=== PATIENT | female | born 1960 | race Caucasian/White ===

== ENCOUNTER 2016-07-08 15:39 | Inpatient (IN) | payer OTHER, SELFPAY ==
[~2016-07-08] VITALS: Ht 160 cm; Wt 152.0 kg
[2016-07-08] MEDS ORDERED: ASPIRIN 81 MG TABLET CHEW ONE (16:29)
[2016-07-08] MEDS ORDERED: ONDANSETRON 2MG/ML, 2ML ONE (16:29)
[2016-07-08] MEDS ORDERED: MORPHINE SULFATE 4 MG/ML, 1ML ONE (16:29)
[2016-07-08] MEDS ORDERED: ALBUTEROL/IPRATROPIUM 2.5MG/0.5MG, 3 ML NPPB ONE (16:30)
[2016-07-08] MEDS ORDERED: NITROGLYCERIN SINGLE TAB 0.4 MG SL PRN (16:30)
[2016-07-08] MEDS ORDERED: SODIUM CHLORIDE FLUSH 10ML SYR IVF ONE (16:30)
[2016-07-08] MEDS ORDERED: MORPHINE SULFATE 4 MG/ML, 1ML IVPush PRN (16:30)
[2016-07-08] MEDS ORDERED: ONDANSETRON 2MG/ML, 2ML IVPush ONE (16:30)
[2016-07-08] MEDS ORDERED: ASPIRIN 81 MG TABLET CHEW PO ONE (16:30)
[2016-07-08] MEDS ORDERED: ALBUTEROL/IPRATROPIUM 2.5MG/0.5MG, 3 ML ONE (16:33)
[2016-07-08 16:42] LABS: BLOOD UREA NITROGEN 22 mg/dL (7-18)
[2016-07-08 16:48] LABS: IS PT STATUS REG ER OR PRE ER? YES
[2016-07-08] MEDS ORDERED: FUROSEMIDE 40 MG/4 ML ONE (17:52)
[2016-07-08] MEDS ORDERED: FUROSEMIDE 20 MG/2 ML ONE ×2 (17:55→18:19)
[2016-07-08] MEDS ORDERED: FUROSEMIDE 20 MG/2 ML IV ONE ×2 (18:00)
[2016-07-08] MEDS ORDERED: HEPARIN 5,000 UNITS/ML, 1ML ONE (18:19)
[2016-07-08] MEDS: HEPARIN 5,000 UNITS/ML, 1ML SQ SCH (18:24)
[2016-07-08] MEDS: AZITHROMYCIN 500 MG in SODIUM CHLORIDE 0.9% 250 ML IV SCH (18:25)
[2016-07-08] MEDS ORDERED: BISACODYL 10 MG SUPP PR PRN (18:30)
[2016-07-08 19:42] VITALS: BP 140/80
[2016-07-08] MEDS: metFORMIN 500 MG TABLET PO SCH (22:41)
[2016-07-08] MEDS: SODIUM CHLORIDE FLUSH 10ML SYR IVF SCH (22:41)
[2016-07-08] MEDS: ACETAMINOPHEN 325 MG TABLET PO PRN (22:44)
[2016-07-09 02:55] VITALS: BP 129/90
[2016-07-09] MEDS: HEPARIN 5,000 UNITS/ML, 1ML SQ SCH ×3 (03:41→18:27)
[2016-07-09 06:05] LABS: ASPARTATE AMINO TRANSFERASE 22 U/L (15-37); BLOOD UREA NITROGEN 21 mg/dL (7-18)
[2016-07-09 06:06] LABS: IS PT STATUS REG ER OR PRE ER? NO
[2016-07-09] MEDS: IBUPROFEN 200 MG TABLET PO PRN ×2 (06:35→21:06)
[2016-07-09 07:53] VITALS: BP 135/88
[2016-07-09] MEDS: FUROSEMIDE 40 MG/4 ML IV SCH ×2 (08:54→17:10)
[2016-07-09] MEDS: SENNA/DOCUSATE TABLET PO SCH (08:54)
[2016-07-09] MEDS: metFORMIN 500 MG TABLET PO SCH ×2 (08:54→17:10)
[2016-07-09] MEDS: SODIUM CHLORIDE FLUSH 10ML SYR IVF SCH ×2 (08:55→21:00)
[2016-07-09] MEDS ORDERED: PNEUMOCOCCAL 23 VACCINE IM-VACC ONE (09:00)
[2016-07-09 11:46] LABS: IS PT STATUS REG ER OR PRE ER? NO
[2016-07-09] MEDS: ACETAMINOPHEN 325 MG TABLET PO PRN (12:39)
[2016-07-09 14:09] VITALS: BP 127/80
[2016-07-09] MEDS: AZITHROMYCIN 500 MG in SODIUM CHLORIDE 0.9% 250 ML IV SCH (18:14)
[2016-07-09 19:03] VITALS: BP 135/79
[2016-07-09 21:18] VITALS: BP 131/75
[2016-07-09] MEDS: ONDANSETRON 2MG/ML, 2ML IVP PRN (22:17)
[2016-07-09] MEDS ORDERED: OXYcodone IR 5MG TABLET PO PRN (22:30)
[2016-07-10 03:19] VITALS: BP 151/80
[2016-07-10] MEDS: ONDANSETRON 2MG/ML, 2ML IVP PRN (03:58)
[2016-07-10] MEDS: HEPARIN 5,000 UNITS/ML, 1ML SQ SCH ×3 (04:00→18:52)
[2016-07-10] MEDS ORDERED: HALOPERIDOL 5 MG/ML IV ONE (04:30)
[2016-07-10 05:53] LABS: BLOOD UREA NITROGEN 19 mg/dL (7-18)
[2016-07-10 08:12] VITALS: BP 154/82
[2016-07-10] MEDS: metFORMIN 500 MG TABLET PO SCH ×2 (09:19→18:52)
[2016-07-10] MEDS: SODIUM CHLORIDE FLUSH 10ML SYR IVF SCH ×2 (09:19→19:43)
[2016-07-10] MEDS: SENNA/DOCUSATE TABLET PO SCH (09:19)
[2016-07-10] MEDS: FUROSEMIDE 40 MG/4 ML IV SCH ×2 (09:19→18:52)
[2016-07-10] MEDS: ACETAMINOPHEN 325 MG TABLET PO PRN ×2 (11:44→19:42)
[2016-07-10 13:58] VITALS: BP 132/60
[2016-07-10] MEDS: AZITHROMYCIN 500 MG in SODIUM CHLORIDE 0.9% 250 ML IV SCH (18:52)
[2016-07-10 19:09] VITALS: BP 137/80
[2016-07-11 01:52] VITALS: BP 144/91
[2016-07-11] MEDS: HEPARIN 5,000 UNITS/ML, 1ML SQ SCH ×3 (04:57→20:43)
[2016-07-11] MEDS: ONDANSETRON 2MG/ML, 2ML IVP PRN ×2 (05:04→10:23)
[2016-07-11 05:37] LABS: BLOOD UREA NITROGEN 20 mg/dL (7-18)
[2016-07-11 07:35] VITALS: BP 134/81
[2016-07-11] MEDS: FUROSEMIDE 40 MG/4 ML IV SCH ×2 (09:53→17:20)
[2016-07-11] MEDS: metFORMIN 500 MG TABLET PO SCH (09:53)
[2016-07-11] MEDS: SENNA/DOCUSATE TABLET PO SCH (09:54)
[2016-07-11] MEDS: SODIUM CHLORIDE FLUSH 10ML SYR IVF SCH ×2 (09:54→20:42)
[2016-07-11] MEDS ORDERED: GABA300C10 PO (10:04)
[2016-07-11] MEDS: POLYETHYLENE GLYCOL 17 GM PACKET PO PRN (10:23)
[2016-07-11 13:00] VITALS: BP 164/93
[2016-07-11] MEDS ORDERED: MAGNESIUM SULFATE PMX 2GM/50ML 50 ML IV ONE (14:00)
[2016-07-11 14:14] LABS: ABG COLLECTION SITE LEFT RADIAL; COLLATERAL CIRCULATION TESTING NORMAL
[2016-07-11 15:28] LABS: PATH.CAST-FLAG NOT PRESENT; SPERM-FLAG NOT PRESENT; SRC-FLAG NOT PRESENT; XTAL-FLAG NOT PRESENT; YLC-FLAG NOT PRESENT
[2016-07-11] MEDS: INSULIN REGULAR 100 UNITS/ML, 3ML VIAL SQ-INSULIN SCH ×2 (16:00→20:50)
[2016-07-11] MEDS: methylPREDNISolone SOD SUCC 125 MG/2 ML IVPush SCH ×2 (16:00→20:23)
[2016-07-11 17:33] LABS: ABG COLLECTION SITE LEFT RADIAL; COLLATERAL CIRCULATION TESTING NORMAL
[2016-07-11] MEDS ORDERED: AcetaZOLAMIDE INJ 500 MG IVPush ONE (17:47)
[2016-07-11] MEDS: AZITHROMYCIN 500 MG in SODIUM CHLORIDE 0.9% 250 ML IV SCH (18:21)
[2016-07-11 20:35] LABS: ABG COLLECTION SITE LEFT RADIAL; COLLATERAL CIRCULATION TESTING NORMAL
[2016-07-11] MEDS: ALBUTEROL SULFATE 2.5 MG/3 ML NPPB SCH (22:27)
[2016-07-12] MEDS: methylPREDNISolone SOD SUCC 125 MG/2 ML IVPush SCH ×4 (02:04→20:29)
[2016-07-12] MEDS: ALBUTEROL SULFATE 2.5 MG/3 ML NPPB SCH ×6 (03:00→23:00)
[2016-07-12 04:00] VITALS: BP 130/66
[2016-07-12 05:27] LABS: ABG COLLECTION SITE RIGHT RADIAL; COLLATERAL CIRCULATION TESTING NORMAL
[2016-07-12 05:44] LABS: BLOOD UREA NITROGEN 18 mg/dL (7-18)
[2016-07-12 05:47] LABS: ASPARTATE AMINO TRANSFERASE 16 U/L (15-37)
[2016-07-12] MEDS: HEPARIN 5,000 UNITS/ML, 1ML SQ SCH ×3 (06:05→20:32)
[2016-07-12] MEDS: INSULIN REGULAR 100 UNITS/ML, 3ML VIAL SQ-INSULIN SCH ×4 (06:14→20:42)
[2016-07-12] MEDS: SODIUM CHLORIDE FLUSH 10ML SYR IVF SCH ×2 (07:56→20:33)
[2016-07-12] MEDS: FUROSEMIDE 40 MG/4 ML IV SCH ×2 (07:56→17:18)
[2016-07-12] MEDS: SENNA/DOCUSATE TABLET PO SCH (07:56)
[2016-07-12] MEDS: ACETAMINOPHEN 325 MG TABLET PO PRN (09:19)
[2016-07-12 13:41] LABS: ABG COLLECTION SITE RIGHT BRACHIAL; COLLATERAL CIRCULATION TESTING NORMAL
[2016-07-12] MEDS: AZITHROMYCIN 500 MG in SODIUM CHLORIDE 0.9% 250 ML IV SCH (20:25)
[2016-07-12 21:11] VITALS: BP 147/85
[2016-07-13] VITALS (7 sets, daily range): BP systolic 126–192; BP diastolic 62–110
[2016-07-13] MEDS: LABETALOL 5MG/ML, 20ML IVPush PRN ×2 (01:57→19:54)
[2016-07-13] MEDS: ALBUTEROL SULFATE 2.5 MG/3 ML NPPB SCH ×3 (03:00→11:00)
[2016-07-13] MEDS: methylPREDNISolone SOD SUCC 125 MG/2 ML IVPush SCH ×4 (03:06→19:54)
[2016-07-13 05:20] LABS: BLOOD UREA NITROGEN 24 mg/dL (7-18)
[2016-07-13] MEDS: HEPARIN 5,000 UNITS/ML, 1ML SQ SCH ×3 (06:19→21:46)
[2016-07-13] MEDS: POLYETHYLENE GLYCOL 17 GM PACKET PO PRN (08:33)
[2016-07-13] MEDS: SENNA/DOCUSATE TABLET PO SCH (08:34)
[2016-07-13] MEDS: FUROSEMIDE 40 MG/4 ML IV SCH ×2 (08:34→16:26)
[2016-07-13] MEDS: INSULIN REGULAR 100 UNITS/ML, 3ML VIAL SQ-INSULIN SCH ×4 (08:35→21:46)
[2016-07-13] MEDS: SODIUM CHLORIDE FLUSH 10ML SYR IVF SCH ×2 (08:35→21:00)
[2016-07-13] MEDS ORDERED: hydrALAzine 20 MG/ML, 1ML IV PRN (09:30)
[2016-07-13] MEDS ORDERED: NS + 20MEQ KCL 1,000 ML IV SCH (09:30)
[2016-07-13] MEDS ORDERED: ENALAPRILAT 1.25 MG/ML, 2ML IV PRN (09:30)
[2016-07-13] MEDS: AZITHROMYCIN 500 MG in SODIUM CHLORIDE 0.9% 250 ML IV SCH (16:26)
[2016-07-13] MEDS: INSULIN DETEMIR 100 UNITS/ML, PEN SQ-INSULIN SCH (16:26)
[2016-07-14 00:45] VITALS: BP 173/85
[2016-07-14] MEDS: methylPREDNISolone SOD SUCC 125 MG/2 ML IVPush SCH ×4 (01:43→22:06)
[2016-07-14] MEDS: LABETALOL 5MG/ML, 20ML IVPush PRN (01:43)
[2016-07-14 06:05] LABS: BLOOD UREA NITROGEN 31 mg/dL (7-18)
[2016-07-14] MEDS: HEPARIN 5,000 UNITS/ML, 1ML SQ SCH ×3 (06:24→22:05)
[2016-07-14] MEDS: INSULIN REGULAR 100 UNITS/ML, 3ML VIAL SQ-INSULIN SCH ×4 (06:25→21:00)
[2016-07-14] MEDS: INSULIN DETEMIR 100 UNITS/ML, PEN SQ-INSULIN SCH ×2 (06:25→22:05)
[2016-07-14 07:46] VITALS: BP 167/105
[2016-07-14] MEDS: FUROSEMIDE 40 MG/4 ML IV SCH ×2 (07:51→17:02)
[2016-07-14] MEDS: SENNA/DOCUSATE TABLET PO SCH (07:52)
[2016-07-14] MEDS: SODIUM CHLORIDE FLUSH 10ML SYR IVF SCH ×2 (07:52→21:43)
[2016-07-14] MEDS: ACETAMINOPHEN 325 MG TABLET PO PRN ×2 (12:40→22:06)
[2016-07-14 15:14] VITALS: BP 165/87
[2016-07-14] MEDS: GABAPENTIN 100 MG CAPSULE PO SCH ×2 (17:03→22:06)
[2016-07-14 20:07] VITALS: BP 157/84
[2016-07-14] MEDS: DOXYCYCLINE 100 MG in DEXTROSE 5% 250 ML IV SCH (21:43)
[2016-07-15] MEDS: methylPREDNISolone SOD SUCC 125 MG/2 ML IVPush SCH ×2 (02:12→08:06)
[2016-07-15 02:17] VITALS: BP 182/113
[2016-07-15] MEDS: LABETALOL 5MG/ML, 20ML IVPush PRN (02:25)
[2016-07-15] MEDS: HEPARIN 5,000 UNITS/ML, 1ML SQ SCH ×3 (06:00→20:24)
[2016-07-15] MEDS: INSULIN REGULAR 100 UNITS/ML, 3ML VIAL SQ-INSULIN SCH ×4 (08:05→20:06)
[2016-07-15] MEDS: FUROSEMIDE 40 MG/4 ML IV SCH ×2 (08:06→16:33)
[2016-07-15] MEDS: INSULIN DETEMIR 100 UNITS/ML, PEN SQ-INSULIN SCH ×2 (08:06→20:23)
[2016-07-15] MEDS: GABAPENTIN 100 MG CAPSULE PO SCH ×3 (08:06→20:24)
[2016-07-15] MEDS: SODIUM CHLORIDE FLUSH 10ML SYR IVF SCH ×2 (08:07→20:23)
[2016-07-15] MEDS: SENNA/DOCUSATE TABLET PO SCH (08:07)
[2016-07-15 08:12] VITALS: BP 159/81
[2016-07-15 08:51] VITALS: BP 153/78
[2016-07-15] MEDS: DOXYCYCLINE 100 MG in DEXTROSE 5% 250 ML IV SCH (10:16)
[2016-07-15 15:56] VITALS: BP 152/82
[2016-07-15 18:43] VITALS: BP 143/76
[2016-07-15] MEDS: DOXYCYCLINE 100MG TABLET PO SCH (20:24)
[2016-07-15] MEDS: ACETAMINOPHEN 325 MG TABLET PO PRN (20:24)
[2016-07-16 01:24] VITALS: BP_SYST 155; BP_SYST 173; BP_DIAS 53; BP_DIAS 93
[2016-07-16] MEDS: HEPARIN 5,000 UNITS/ML, 1ML SQ SCH (05:22)
[2016-07-16 07:13] VITALS: BP 154/81
[2016-07-16] MEDS: INSULIN REGULAR 100 UNITS/ML, 3ML VIAL SQ-INSULIN SCH (09:17)
[2016-07-16] MEDS: DOXYCYCLINE 100MG TABLET PO SCH (09:41)
[2016-07-16] MEDS: GABAPENTIN 100 MG CAPSULE PO SCH (09:41)
[2016-07-16] MEDS: SENNA/DOCUSATE TABLET PO SCH (09:41)
[2016-07-16] MEDS: INSULIN DETEMIR 100 UNITS/ML, PEN SQ-INSULIN SCH ×2 (09:43→10:16)
[2016-07-16] MEDS: ACETAMINOPHEN 325 MG TABLET PO PRN (09:55)
[2016-07-16] MEDS: SODIUM CHLORIDE FLUSH 10ML SYR IVF SCH (09:56)
[2016-07-16] MEDS: FUROSEMIDE 40 MG/4 ML IV SCH (09:56)
[2016-07-16] MEDS ORDERED: POTA20TA89 PO (10:09)
[2016-07-16] MEDS ORDERED: INSU100I28 SQ-INSULIN (10:09)
[2016-07-16] MEDS ORDERED: DOXY100T PO (10:09)
[2016-07-16] MEDS ORDERED: GLIP5TAB10 PO (10:09)
[2016-07-16] MEDS ORDERED: FLUT1AER INH (10:09)
[2016-07-16] MEDS ORDERED: TRAM50TA2 PO (10:09)
[2016-07-16] MEDS ORDERED: HYDR-3341 PO (10:09)
[2016-07-16] MEDS ORDERED: FURO40TA6 PO (10:09)
[2016-07-16] MEDS ORDERED: PRED5TAB PO (10:09)
[2016-07-16] MEDS ORDERED: GABA100C8 PO (10:09)
[2016-07-16 11:10] LABS: IS PT STATUS REG ER OR PRE ER? NO
== END 2016-07-16 15:06 | disposition home or self-care (01) | DRG 291 ==
LOC: ED 17:42 → EDIP 18:03 → 5SO 18:51 → CCU 07-11 14:54 → 5SO 07-12 17:46
PROVIDERS: ADMIT Internal Medicine; ATTEND Family Medicine
PROC: 5A09457 Assistance with Respiratory Ventilation, 24-96 Consecutive Hours, Continuous Positive Airway Pressure (ICD-10-PCS; 2016-07-10)
PROC: 0T9B70Z Drainage of Bladder with Drainage Device, Via Natural or Artificial Opening (ICD-10-PCS; principal; 2016-07-11)
DX: I11.0 Hypertensive heart disease with heart failure (principal); J96.01 Acute respiratory failure with hypoxia; N17.0 Acute kidney failure with tubular necrosis; G93.41 Metabolic encephalopathy; J96.02 Acute respiratory failure with hypercapnia; J44.1 Chronic obstructive pulmonary disease with (acute) exacerbation; Z68.44 Body mass index [BMI] 60.0-69.9, adult; E87.2 Acidosis; E87.1 Hypo-osmolality and hyponatremia; I50.33 Acute on chronic diastolic (congestive) heart failure; E66.01 Morbid (severe) obesity due to excess calories; E11.65 Type 2 diabetes mellitus with hyperglycemia; D75.1 Secondary polycythemia; E03.9 Hypothyroidism, unspecified; Z87.891 Personal history of nicotine dependence; Z82.49 Family history of ischemic heart disease and other diseases of the circulatory system; Z91.19 Patient's noncompliance with other medical treatment and regimen; Z82.3 Family history of stroke; Z80.3 Family history of malignant neoplasm of breast; Z79.4 Long term (current) use of insulin; Z79.84 Long term (current) use of oral hypoglycemic drugs
CPT/HCPCS: 36415; 36600; 71010; 80048; 80053; 80061; 80076; 81001; 82040; 82803; 82962; 83036; 83735; 83880; 84439; 84443; 84484; 85025; 87081; 90732; 93005; 94640; 94660; 96374; 96375; C8929; J0456; J1644; J1815; J1940; J2405; J3480; J7060; J7613; J7620; J1120; J1630; J2930; J3475; J7050; J7512

== ENCOUNTER 2017-02-26 20:12 | Inpatient (IN) | payer MEDICAID, OTHER ==
[~2017-02-26] VITALS: Ht 162.6 cm; Wt 145.0 kg
[~2017-02-26 20:12] MED LIST: DOXY100T PO; FLUT1AER INH; FURO40TA6 PO; GABA-826 PO; GABA300C10 PO; GLIP5TAB10 PO; HYDR-3341 PO; INSU100I28 SQ-INSULIN; POTA20TA89 PO; PRED5TAB PO; TRAM50TA2 PO
[2017-02-26] MEDS ORDERED: SODIUM CHLORIDE 0.9% 1,000 ML IV ONE (20:40)
[2017-02-26] MEDS ORDERED: ALBUTEROL/IPRATROPIUM 2.5MG/0.5MG, 3 ML ONE (20:46)
[2017-02-26] MEDS ORDERED: NITROGLYCERIN OINT 2%, 1GM TP ONE ×2 (21:00→21:12)
[2017-02-26] MEDS ORDERED: ALBUTEROL/IPRATROPIUM 2.5MG/0.5MG, 3 ML NPPB ONE (21:00)
[2017-02-26] MEDS ORDERED: SODIUM CHLORIDE FLUSH 10ML SYR IVF ONE (21:00)
[2017-02-26] MEDS ORDERED: methylPREDNISolone SOD SUCC 125 MG/2 ML IVP ONE (21:00)
[2017-02-26] MEDS ORDERED: methylPREDNISolone SOD SUCC 125 MG/2 ML ONE (21:12)
[2017-02-26 21:48] LABS: ASPARTATE AMINO TRANSFERASE 30 U/L (15-37); BLOOD UREA NITROGEN 13 mg/dL (7-18)
[2017-02-26 21:54] LABS: IS PT STATUS REG ER OR PRE ER? YES
[2017-02-26 21:58] LABS: HEMATOCRIT 42.6 % (34.6-47.8); WHITE BLOOD COUNT 7.8 x10^3/uL (3.4-10)
[2017-02-26 21:59] LABS: DIFF TOTAL CELLS COUNTED 100 CELL DIFF; VERIFY COUNTS? YES
[2017-02-26] MEDS ORDERED: SODIUM CHLORIDE 0.9% 1,000 ML IV SCH (22:26)
[2017-02-26] MEDS ORDERED: ALBUTEROL/IPRATROPIUM 2.5MG/0.5MG, 3 ML NPPB PRN (22:30)
[2017-02-26] MEDS ORDERED: ONDANSETRON ODT 4 MG PO PRN (22:30)
[2017-02-26] MEDS ORDERED: FUROSEMIDE 40 MG/4 ML IV ONE (22:30)
[2017-02-26] MEDS ORDERED: AZITHROMYCIN 500 MG TABLET PO ONE (22:30)
[2017-02-26] MEDS ORDERED: ENALAPRILAT 1.25 MG/ML, 2ML IVPush PRN (22:30)
[2017-02-26] MEDS ORDERED: INSULIN DETEMIR 100 UNITS/ML, PEN SQ-INSULIN SCH (22:30)
[2017-02-26] MEDS ORDERED: LISINOPRIL 10 MG TABLET PO ONE (22:30)
[2017-02-26] MEDS: methylPREDNISolone SOD SUCC 125 MG/2 ML IVPush SCH (22:33)
[2017-02-26] MEDS: ALBUTEROL/IPRATROPIUM 2.5MG/0.5MG, 3 ML NPPB SCH (23:00)
[2017-02-26 23:20] VITALS: BP 127/85
[2017-02-26] MEDS ORDERED: ACETAMINOPHEN 325 MG TABLET PO PRN (23:30)
[2017-02-27] MEDS ORDERED: DEXTROSE 50%, 50ML SYRINGE IVPush PRN
[2017-02-27] MEDS ORDERED: DEXTROSE 4 GM TAB.CHEW PO PRN
[2017-02-27] MEDS ORDERED: GLUCAGON 1 MG IM PRN
[2017-02-27] MEDS: IBUPROFEN 200 MG TABLET PO PRN ×2 (00:01→13:18)
[2017-02-27 00:19] VITALS: BP 127/85
[2017-02-27] MEDS ORDERED: FUROSEMIDE 20 MG/2 ML ONE (00:58)
[2017-02-27] MEDS ORDERED: FLU VACC QS2017-18 (36MOS+) UP/PF 0.5 ML IM-VACC ONE (01:00)
[2017-02-27 01:13] LABS: RAPID INFLUENZA A POSITIVE (Negative); RAPID INFLUENZA B Negative (Negative)
[2017-02-27] MEDS: ENOXAPARIN 40 MG/0.4 ML SQ SCH ×2 (01:16→22:34)
[2017-02-27] MEDS ORDERED: ALBUTEROL/IPRATROPIUM 2.5MG/0.5MG, 3 ML NPPB PRN (01:30)
[2017-02-27] MEDS ORDERED: ALBUTEROL/IPRATROPIUM 2.5MG/0.5MG, 3 ML NPPB SCH (01:30)
[2017-02-27] MEDS: OSELTAMIVIR 75 MG CAPSULE PO SCH ×3 (02:23→20:50)
[2017-02-27 02:32] VITALS: BP 150/75
[2017-02-27] MEDS: ALBUTEROL/IPRATROPIUM 2.5MG/0.5MG, 3 ML NPPB SCH ×6 (02:47→22:40)
[2017-02-27 05:55] LABS: HEMATOCRIT 39.4 % (34.6-47.8); HEMOGLOBIN 12.9 g/dL (11.7-16.4); WHITE BLOOD COUNT 7.6 x10^3/uL (3.4-10)
[2017-02-27] MEDS: ASPIRIN 81 MG TABLET EC PO SCH (06:18)
[2017-02-27] MEDS ORDERED: GUAIFENESIN ER 600 MG TABLET PO STA (06:19)
[2017-02-27 06:25] LABS: ABG COLLECTION SITE LEFT RADIAL; COLLATERAL CIRCULATION TESTING NORMAL
[2017-02-27] MEDS ORDERED: FUROSEMIDE 40 MG/4 ML IV STA (06:34)
[2017-02-27 06:42] LABS: IS PT STATUS REG ER OR PRE ER? NO
[2017-02-27 07:10] VITALS: BP 139/66
[2017-02-27] MEDS ORDERED: FUROSEMIDE 40 MG TABLET PO SCH (09:00)
[2017-02-27] MEDS ORDERED: POTASSIUM CHLORIDE 20 MEQ TAB.ER.PRT PO SCH (09:00)
[2017-02-27] MEDS: FLUTICASONE/VILANTEROL 100-25MCG/INH INH SCH ×2 (09:06→20:50)
[2017-02-27] MEDS: INSULIN REGULAR 100 UNITS/ML, 3ML VIAL SQ-INSULIN SCH ×4 (09:06→21:06)
[2017-02-27] MEDS: SODIUM CHLORIDE FLUSH 10ML SYR IVF SCH ×2 (09:08→20:51)
[2017-02-27] MEDS: GABAPENTIN 100 MG CAPSULE PO SCH ×3 (09:09→20:50)
[2017-02-27] MEDS: POTASSIUM CHLORIDE 20 MEQ TAB.ER.PRT PO SCH ×2 (09:09→20:50)
[2017-02-27] MEDS: LISINOPRIL 20 MG TABLET PO SCH (09:10)
[2017-02-27] MEDS: AZITHROMYCIN 250 MG TABLET PO SCH (09:11)
[2017-02-27] MEDS: CEFTRIAXONE PMX 2GM/50ML 50 ML IV SCH (09:12)
[2017-02-27] MEDS: FUROSEMIDE 40 MG/4 ML IV SCH (09:12)
[2017-02-27 10:19] LABS: IS PT STATUS REG ER OR PRE ER? NO
[2017-02-27] MEDS: methylPREDNISolone SOD SUCC 125 MG/2 ML IVPush SCH ×2 (11:00→22:34)
[2017-02-27 13:13] VITALS: BP 113/52
[2017-02-27 15:19] LABS: BLOOD UREA NITROGEN 18 mg/dL (7-18)
[2017-02-27 16:44] VITALS: BP 128/63
[2017-02-27 20:43] VITALS: BP 109/76
[2017-02-27] MEDS: SIMVASTATIN 20 MG TABLET PO SCH (20:50)
[2017-02-27] MEDS ORDERED: SODIUM CHLORIDE 0.9% 1,000 ML IV SCH (22:26)
[2017-02-28] MEDS: ALBUTEROL/IPRATROPIUM 2.5MG/0.5MG, 3 ML NPPB SCH ×6 (02:45→22:43)
[2017-02-28] MEDS: ASPIRIN 81 MG TABLET EC PO SCH (03:05)
[2017-02-28] MEDS: IBUPROFEN 200 MG TABLET PO PRN ×2 (03:05→20:16)
[2017-02-28 03:09] VITALS: BP 126/60
[2017-02-28 07:36] VITALS: BP 144/68
[2017-02-28] MEDS: FLUTICASONE/VILANTEROL 100-25MCG/INH INH SCH ×2 (07:45→20:16)
[2017-02-28] MEDS: INSULIN REGULAR 100 UNITS/ML, 3ML VIAL SQ-INSULIN SCH ×4 (07:45→22:37)
[2017-02-28] MEDS: FUROSEMIDE 40 MG/4 ML IV SCH ×2 (07:46→08:57)
[2017-02-28] MEDS: GABAPENTIN 100 MG CAPSULE PO SCH ×3 (07:47→20:16)
[2017-02-28] MEDS: POTASSIUM CHLORIDE 20 MEQ TAB.ER.PRT PO SCH ×3 (07:47→20:17)
[2017-02-28] MEDS: LISINOPRIL 20 MG TABLET PO SCH (07:48)
[2017-02-28] MEDS: OSELTAMIVIR 75 MG CAPSULE PO SCH ×2 (08:56→20:16)
[2017-02-28] MEDS: CEFTRIAXONE PMX 2GM/50ML 50 ML IV SCH (08:56)
[2017-02-28] MEDS: AZITHROMYCIN 250 MG TABLET PO SCH (08:56)
[2017-02-28] MEDS: SODIUM CHLORIDE FLUSH 10ML SYR IVF SCH ×2 (09:11→20:16)
[2017-02-28] MEDS: methylPREDNISolone SOD SUCC 125 MG/2 ML IVPush SCH (11:32)
[2017-02-28 14:43] VITALS: BP 141/68
[2017-02-28 19:49] VITALS: BP 123/69
[2017-02-28] MEDS: SIMVASTATIN 20 MG TABLET PO SCH (20:16)
[2017-02-28] MEDS: ENOXAPARIN 40 MG/0.4 ML SQ SCH (22:33)
[2017-03-01 02:53] VITALS: BP 124/62
[2017-03-01] MEDS: ALBUTEROL/IPRATROPIUM 2.5MG/0.5MG, 3 ML NPPB SCH ×6 (03:00→22:20)
[2017-03-01] MEDS: ASPIRIN 81 MG TABLET EC PO SCH (04:55)
[2017-03-01 05:49] LABS: BLOOD UREA NITROGEN 25 mg/dL (7-18)
[2017-03-01] MEDS: INSULIN REGULAR 100 UNITS/ML, 3ML VIAL SQ-INSULIN SCH ×4 (06:00→20:35)
[2017-03-01 07:38] VITALS: BP 135/75
[2017-03-01] MEDS: predniSONE 50MG TABLET PO SCH (08:42)
[2017-03-01] MEDS: FUROSEMIDE 40 MG/4 ML IV SCH (08:42)
[2017-03-01] MEDS: AZITHROMYCIN 250 MG TABLET PO SCH (08:42)
[2017-03-01] MEDS: LISINOPRIL 20 MG TABLET PO SCH (08:43)
[2017-03-01] MEDS: CEFTRIAXONE PMX 2GM/50ML 50 ML IV SCH (08:43)
[2017-03-01] MEDS: OSELTAMIVIR 75 MG CAPSULE PO SCH ×2 (08:43→20:15)
[2017-03-01] MEDS: GABAPENTIN 100 MG CAPSULE PO SCH ×3 (08:43→20:15)
[2017-03-01] MEDS: POTASSIUM CHLORIDE 20 MEQ TAB.ER.PRT PO SCH ×2 (08:43→20:15)
[2017-03-01] MEDS: SODIUM CHLORIDE FLUSH 10ML SYR IVF SCH ×2 (08:44→20:18)
[2017-03-01] MEDS: FLUTICASONE/VILANTEROL 100-25MCG/INH INH SCH ×2 (08:44→20:18)
[2017-03-01 13:00] VITALS: BP 97/48
[2017-03-01 19:16] VITALS: BP 135/71
[2017-03-01] MEDS: ENOXAPARIN 40 MG/0.4 ML SQ SCH (20:14)
[2017-03-01] MEDS: SIMVASTATIN 20 MG TABLET PO SCH (20:15)
[2017-03-01] MEDS: BENZONATATE 100 MG CAPSULE PO PRN (20:15)
[2017-03-02 02:01] VITALS: BP 132/67
[2017-03-02] MEDS: ASPIRIN 81 MG TABLET EC PO SCH (03:46)
[2017-03-02] MEDS: IBUPROFEN 200 MG TABLET PO PRN ×2 (03:57→21:09)
[2017-03-02] MEDS: BENZONATATE 100 MG CAPSULE PO PRN ×2 (03:57→21:25)
[2017-03-02] MEDS ORDERED: ALBUTEROL/IPRATROPIUM 2.5MG/0.5MG, 3 ML NPPB PRN (06:00)
[2017-03-02] MEDS ORDERED: ALBUTEROL/IPRATROPIUM 2.5MG/0.5MG, 3 ML NPPB SCH (06:00)
[2017-03-02] MEDS: INSULIN REGULAR 100 UNITS/ML, 3ML VIAL SQ-INSULIN SCH ×4 (06:28→21:26)
[2017-03-02] MEDS: FLUTICASONE/VILANTEROL 100-25MCG/INH INH SCH ×2 (07:49→21:00)
[2017-03-02] MEDS: predniSONE 50MG TABLET PO SCH (07:49)
[2017-03-02] MEDS: GABAPENTIN 100 MG CAPSULE PO SCH ×3 (07:49→20:58)
[2017-03-02] MEDS: OSELTAMIVIR 75 MG CAPSULE PO SCH ×2 (07:49→20:59)
[2017-03-02] MEDS: FUROSEMIDE 40 MG/4 ML IV SCH (07:49)
[2017-03-02] MEDS: AZITHROMYCIN 250 MG TABLET PO SCH (07:50)
[2017-03-02] MEDS: LISINOPRIL 20 MG TABLET PO SCH (07:55)
[2017-03-02] MEDS: POTASSIUM CHLORIDE 20 MEQ TAB.ER.PRT PO SCH ×2 (07:55→20:58)
[2017-03-02] MEDS: SODIUM CHLORIDE FLUSH 10ML SYR IVF SCH ×2 (07:56→21:00)
[2017-03-02 08:10] VITALS: BP 118/53
[2017-03-02] MEDS: ALBUTEROL/IPRATROPIUM 2.5MG/0.5MG, 3 ML NPPB SCH ×5 (08:30→22:15)
[2017-03-02] MEDS: CEFTRIAXONE PMX 2GM/50ML 50 ML IV SCH (09:01)
[2017-03-02 13:43] VITALS: BP 125/65
[2017-03-02] MEDS: INSULIN DETEMIR 100 UNITS/ML, PEN SQ-INSULIN SCH (17:30)
[2017-03-02 19:43] VITALS: BP 123/81
[2017-03-02] MEDS: SIMVASTATIN 20 MG TABLET PO SCH (20:58)
[2017-03-02] MEDS: ENOXAPARIN 40 MG/0.4 ML SQ SCH (20:59)
[2017-03-03 02:24] VITALS: BP 136/71
[2017-03-03] MEDS: ASPIRIN 81 MG TABLET EC PO SCH (05:55)
[2017-03-03] MEDS: ALBUTEROL/IPRATROPIUM 2.5MG/0.5MG, 3 ML NPPB SCH ×5 (07:28→22:50)
[2017-03-03 08:00] VITALS: BP 121/71
[2017-03-03] MEDS: AZITHROMYCIN 250 MG TABLET PO SCH (08:45)
[2017-03-03] MEDS: LISINOPRIL 20 MG TABLET PO SCH (08:45)
[2017-03-03] MEDS: GABAPENTIN 100 MG CAPSULE PO SCH ×3 (08:45→22:33)
[2017-03-03] MEDS: POTASSIUM CHLORIDE 20 MEQ TAB.ER.PRT PO SCH ×2 (08:45→22:32)
[2017-03-03] MEDS: OSELTAMIVIR 75 MG CAPSULE PO SCH ×2 (08:45→22:32)
[2017-03-03] MEDS: SODIUM CHLORIDE FLUSH 10ML SYR IVF SCH ×2 (08:46→21:00)
[2017-03-03] MEDS: predniSONE 50MG TABLET PO SCH (08:46)
[2017-03-03] MEDS: INSULIN REGULAR 100 UNITS/ML, 3ML VIAL SQ-INSULIN SCH ×4 (08:50→21:00)
[2017-03-03] MEDS: FLUTICASONE/VILANTEROL 100-25MCG/INH INH SCH ×2 (08:51→22:31)
[2017-03-03] MEDS: FUROSEMIDE 40 MG/4 ML IV SCH (09:00)
[2017-03-03] MEDS: CEFTRIAXONE PMX 2GM/50ML 50 ML IV SCH (09:00)
[2017-03-03] MEDS ORDERED: CEFTRIAXONE 1,000 MG IM ONE (11:00)
[2017-03-03 13:31] VITALS: BP 125/79
[2017-03-03] MEDS ORDERED: LIDOCAINE 1%, 10ML ONE (15:22)
[2017-03-03] MEDS: INSULIN DETEMIR 100 UNITS/ML, PEN SQ-INSULIN SCH (18:48)
[2017-03-03 19:16] VITALS: BP 144/75
[2017-03-03] MEDS: SIMVASTATIN 20 MG TABLET PO SCH (22:32)
[2017-03-03] MEDS: ENOXAPARIN 40 MG/0.4 ML SQ SCH (22:34)
[2017-03-03] MEDS: BENZONATATE 100 MG CAPSULE PO PRN (22:34)
[2017-03-04 03:42] VITALS: BP 127/83
[2017-03-04] MEDS: ASPIRIN 81 MG TABLET EC PO SCH (05:56)
[2017-03-04] MEDS: IBUPROFEN 200 MG TABLET PO PRN (06:07)
[2017-03-04] MEDS: INSULIN REGULAR 100 UNITS/ML, 3ML VIAL SQ-INSULIN SCH (07:00)
[2017-03-04 07:02] VITALS: BP 115/74
[2017-03-04] MEDS: ALBUTEROL/IPRATROPIUM 2.5MG/0.5MG, 3 ML NPPB SCH ×2 (07:28→11:12)
[2017-03-04] MEDS: predniSONE 50MG TABLET PO SCH (08:00)
[2017-03-04] MEDS: CEFTRIAXONE PMX 2GM/50ML 50 ML IV SCH ×2 (09:00→09:23)
[2017-03-04] MEDS: FLUTICASONE/VILANTEROL 100-25MCG/INH INH SCH (09:11)
[2017-03-04] MEDS: GABAPENTIN 100 MG CAPSULE PO SCH (09:12)
[2017-03-04] MEDS: AZITHROMYCIN 250 MG TABLET PO SCH (09:12)
[2017-03-04] MEDS: LISINOPRIL 20 MG TABLET PO SCH (09:12)
[2017-03-04] MEDS: POTASSIUM CHLORIDE 20 MEQ TAB.ER.PRT PO SCH (09:12)
[2017-03-04] MEDS: OSELTAMIVIR 75 MG CAPSULE PO SCH (09:14)
[2017-03-04] MEDS: SODIUM CHLORIDE FLUSH 10ML SYR IVF SCH (09:15)
[2017-03-04] MEDS: BENZONATATE 100 MG CAPSULE PO PRN (09:24)
[2017-03-04] MEDS ORDERED: BENZ100C PO (10:51)
[2017-03-04 12:32] VITALS: BP 118/88
== END 2017-03-04 14:51 | disposition home or self-care (01) | DRG 190 ==
LOC: ED 22:35 → EDIP 22:40 → 4NOR 23:20 → 3NE 03-02 18:40
PROVIDERS: ADMIT Family Medicine; ATTEND Family Medicine
DX: J44.1 Chronic obstructive pulmonary disease with (acute) exacerbation (principal); J18.8 Other pneumonia, unspecified organism; J10.08 Influenza due to other identified influenza virus with other specified pneumonia; I11.0 Hypertensive heart disease with heart failure; E11.40 Type 2 diabetes mellitus with diabetic neuropathy, unspecified; I50.9 Heart failure, unspecified; E66.2 Morbid (severe) obesity with alveolar hypoventilation; E87.2 Acidosis; Z68.43 Body mass index [BMI] 50.0-59.9, adult; E11.649 Type 2 diabetes mellitus with hypoglycemia without coma; J44.0 Chronic obstructive pulmonary disease with (acute) lower respiratory infection; R19.7 Diarrhea, unspecified; F41.9 Anxiety disorder, unspecified; E07.9 Disorder of thyroid, unspecified; J10.1 Influenza due to other identified influenza virus with other respiratory manifestations; Z80.3 Family history of malignant neoplasm of breast; Z80.8 Family history of malignant neoplasm of other organs or systems; Z86.14 Personal history of Methicillin resistant Staphylococcus aureus infection; Z82.3 Family history of stroke; Z87.891 Personal history of nicotine dependence; Z91.14 Patient's other noncompliance with medication regimen; Z99.81 Dependence on supplemental oxygen; Z23 Encounter for immunization
CPT/HCPCS: 36415; 36600; 71010; 80048; 80053; 82803; 82962; 83605; 83880; 84484; 85025; 87040; 87324; 87400; 90686; 93005; 94640; 94667; 96374; J0696; J1650; J1815; J1940; J3490; J7620; J2930; J7030; J7512

== ENCOUNTER 2017-11-10 21:21 | Emergency (ER) | payer MEDICAID ==
[~2017-11-10 21:21] MED LIST changes: +ASPI1TAB61 PO; +BENZ100C PO; +CEFD300C37 PO
[2017-11-10 22:46] VITALS: BP 126/75
[2017-11-10 22:58] LABS: MEAN CORPUSCULAR HGB CONC 32.8 g/dL (32.4-35.8); MEAN CORPUSCULAR VOLUME 88.4 fL (80-100); MEAN PLATELET VOLUME 8.5 fL (7.4-10.4); PLATELET COUNT 339 x10^3/uL (130-400); RED BLOOD COUNT 4.45 x10^6/uL (3.82-5.3); RED CELL DISTRIBUTION WIDTH 14.5 % (9.6-15.2)
[2017-11-10 23:10] LABS: ALBUMIN 3.8 g/dL (3.4-5.0); ANION GAP 6 mmol/L (5-15); CALCIUM 9.7 mg/dL (8.5-10.1); CHLORIDE 103 mmol/L (98-107)
[2017-11-10 23:17] LABS: ALANINE AMINOTRANSFERASE 32 U/L (12-78); ALKALINE PHOSPHATASE 83 U/L (45-117); BILIRUBIN,TOTAL 0.5 mg/dL (0.2-1.0); CREATININE 1.15 mg/dL (0.55-1.02); TOTAL PROTEIN 7.6 g/dL (6.4-8.2); TROPONIN I < 0.015 ng/mL (0.000-0.045)
[2017-11-10 23:26] LABS: BASOPHILS # (AUTO) 0.21 x10^3/uL (0-0.1); BASOPHILS % (AUTO) 2 % (0-1); EOSINOPHILS % (AUTO) 0 % (1-7); LYMPHOCYTES # (AUTO) 0.77 x10^3/uL (1-3.4); LYMPHOCYTES % (AUTO) 8 % (22-44); MD SCAN; MONOCYTES # (AUTO) 0.18 x10^3/uL (0.2-0.8); MONOCYTES % (AUTO) 2 % (2-9); NEUTROPHILS # (AUTO) 8.24 x10^3/uL (1.8-6.8); NEUTROPHILS % (AUTO) 88 % (42-75)
[2017-11-10 23:29] LABS: INTERNATIONAL NORMALIZED RATIO 0.94 (0.93-1.1); PROTHROMBIN TIME 9.7 Seconds (9.6-11.5)
== END 2017-11-10 23:53 | disposition home or self-care (01) ==
LOC: ED 23:14
DX: J44.1 Chronic obstructive pulmonary disease with (acute) exacerbation (principal); I11.0 Hypertensive heart disease with heart failure; I50.9 Heart failure, unspecified; Z88.5 Allergy status to narcotic agent; E11.9 Type 2 diabetes mellitus without complications; Z88.8 Allergy status to other drugs, medicaments and biological substances
CPT/HCPCS: 36415; 71045; 80053; 83880; 84484; 85025; 85610; 85730; 93005; 99285

== ENCOUNTER 2020-02-08 10:26 | Inpatient (IN) | payer MEDICAID ==
[~2020-02-08] VITALS: Ht 160 cm; Wt 137.7 kg
--- NOTE | 2020-02-08 10:53 | NUR ---
PT HAS CO COVID SYMPTOMS, SOB, COUGH, BONILLA, WEAKNESS. PT HAS HX OF HEART FAILURE AND COPD. ON BASELINE 6L O2. HAS CO CHEST PRESSURE FROM COUGHING. PT NOT IN DISTRESS.
[2020-02-08 12:11] LABS: BASOPHILS % (AUTO) 1 % (0-1); EOSINOPHILS % (AUTO) 1 % (1-7); LYMPHOCYTES % (AUTO) 12 % (22-44); MEAN CORPUSCULAR HEMOGLOBIN 28.8 pg (27.0-34.8); MEAN CORPUSCULAR HGB CONC 32.5 g/dL (32.4-35.8); MEAN PLATELET VOLUME 8.2 fL (7.4-10.4); MONOCYTES % (AUTO) 9 % (2-9); NEUTROPHILS % (AUTO) 77 % (42-75); PLATELET COUNT 204 x10^3/uL (130-400); RED BLOOD COUNT 3.91 x10^6/uL (3.82-5.3)
[2020-02-08 12:12] LABS: MD NO
[2020-02-08 12:23] LABS: ALANINE AMINOTRANSFERASE 33 U/L (12-78); ALBUMIN 3.5 g/dL (3.4-5.0); ANION GAP 7 mmol/L (5-15); CALCIUM 9.4 mg/dL (8.5-10.1); CHLORIDE 107 mmol/L (98-107); CREATININE 0.95 mg/dL (0.55-1.02)
[2020-02-08 12:27] LABS: ALKALINE PHOSPHATASE 75 U/L (45-117); BILIRUBIN,TOTAL 0.2 mg/dL (0.2-1.0); TOTAL PROTEIN 7.5 g/dL (6.4-8.2)
--- NOTE | 2020-02-08 12:46 | NUR ---
REPORT FROM EMELIA HOOD. ASSUMING PRIMARY CARE OF PT.
[2020-02-08] MEDS ORDERED: CEFTRIAXONE PMX 1GM/50ML 50 ML ONE (12:55)
[2020-02-08] MEDS ORDERED: CEFTRIAXONE PMX 1GM/50ML 50 ML IVPB ONE (13:00)
[2020-02-08] MEDS ORDERED: AZITHROMYCIN 500 MG in SODIUM CHLORIDE 0.9% 250 ML IV ONE (13:00)
[2020-02-08] MEDS ORDERED: SODIUM CHLORIDE FLUSH 10ML SYR IVF ONE (13:00)
--- NOTE | 2020-02-08 13:05 | NUR ---
PIV ACCESS OBTAINED. ABX BEING ADMINSTERED PER EMAR. PT TBAD.
--- NOTE | 2020-02-08 13:33 | NUR ---
2/2 ABX BEING ADMINISTERED PER EMAR.
[2020-02-08] MEDS ORDERED: METF500T17 PO (13:37)
[2020-02-08] MEDS ORDERED: LIRA0.6P SC (13:37)
[2020-02-08] MEDS ORDERED: GABA600T7 PO (13:37)
[2020-02-08] MEDS ORDERED: LISI-170 PO (13:37)
[2020-02-08] MEDS ORDERED: SIMV5TAB14 PO (13:37)
[2020-02-08] MEDS ORDERED: LEVO25TA4 PO (13:37)
[2020-02-08] MEDS ORDERED: ASPI-515 PO (13:38)
[2020-02-08] MEDS ORDERED: ACETAMINOPHEN 500 MG TABLET ONE (13:50)
--- NOTE | 2020-02-08 13:53 | NUR ---
RN ADMINISTERED MEDICATION PER EMAR FOR 12/21 BONILLA. OKAY BY COLT TO ORDER PT LUNCH.
[2020-02-08] MEDS ORDERED: ACETAMINOPHEN 500 MG TABLET PO ONE (14:00)
--- NOTE | 2020-02-08 14:06 | NUR ---
PT TRANSPORTED FROM [facility] TO HOSPITAL BED.
--- NOTE | 2020-02-08 14:08 | NUR ---
REPORT TO GEORGE CROWLEY RN.
[2020-02-08] MEDS ORDERED: ALBUTEROL HFA 90 MCG/SPRAY INH SCH (15:00)
[2020-02-08] MEDS ORDERED: hydrALAzine 20 MG/ML, 1ML IVPush PRN (15:00)
[2020-02-08 15:26] LABS: FREE T4 (FREE THYROXINE) 1.29 ng/dL (0.76-1.46)
--- NOTE | 2020-02-08 15:35 | NUR ---
REPORT TO EMELIA KRUEGER. PT TO BE TRANSPORTED TO FLOOR VIA HOSPITAL BED.
[2020-02-08] MEDS ORDERED: ASCORBIC ACID 500 MG TABLET ONE (15:47)
[2020-02-08] MEDS ORDERED: metFORMIN 500 MG TABLET ONE (15:47)
[2020-02-08] MEDS ORDERED: DEXAMETHASONE 4 MG/ML, 1ML ONE (15:47)
[2020-02-08] MEDS ORDERED: BENZONATATE 100 MG CAPSULE ONE (15:48)
[2020-02-08] MEDS: BENZONATATE 100 MG CAPSULE PO SCH ×2 (15:50→21:56)
[2020-02-08] MEDS: ASCORBIC ACID 500 MG TABLET PO SCH ×2 (15:50→21:57)
[2020-02-08] MEDS: DEXAMETHASONE 4 MG/ML, 1ML IVPush SCH (15:51)
[2020-02-08] MEDS ORDERED: metFORMIN 500 MG TABLET PO SCH (16:00)
[2020-02-08] MEDS: metFORMIN 500 MG TABLET PO SCH (16:23)
[2020-02-08] MEDS ORDERED: GABAPENTIN 300 MG CAPSULE ONE (16:27)
[2020-02-08] MEDS: ENOXAPARIN 30 MG/0.3 ML SQ SCH (16:29)
[2020-02-08] MEDS: GABAPENTIN 300 MG CAPSULE PO SCH ×2 (16:29→21:56)
[2020-02-08] MEDS: INSULIN LISPRO 100 UNITS/ML, PEN SQ-INSULIN SCH ×2 (16:30→21:56)
[2020-02-08] MEDS ORDERED: FUROSEMIDE 20 MG/2 ML ONE (16:49)
[2020-02-08] MEDS: FUROSEMIDE 20 MG/2 ML IV SCH (16:51)
--- NOTE | 2020-02-08 17:20 | NUR ---
RN TRANSPORTED PT TO FLOOR VIA HOSPITAL BED.
[2020-02-08 17:24] VITALS: BP 117/63
[2020-02-08 17:51] LABS: RAPID INFLUENZA A Negative (Negative); RAPID INFLUENZA B Negative (Negative)
[2020-02-08] MEDS: ALBUTEROL HFA 90 MCG/SPRAY INH SCH ×2 (18:33→23:16)
[2020-02-08 18:44] VITALS: BP 112/66
[2020-02-08 21:00] VITALS: BP 115/66
[2020-02-08] MEDS: SODIUM CHLORIDE FLUSH 10ML SYR IVF SCH (21:57)
[2020-02-08] MEDS: MELATONIN 5 MG TABLET PO SCH (21:57)
[2020-02-08] MEDS: DOXYCYCLINE 100MG TABLET PO SCH (21:57)
[2020-02-08] MEDS: SIMVASTATIN 20 MG TABLET PO SCH (21:57)
[2020-02-09 00:58] VITALS: BP 100/63
[2020-02-09] MEDS: ALBUTEROL HFA 90 MCG/SPRAY INH SCH ×4 (01:10→16:50)
[2020-02-09] MEDS: ENOXAPARIN 30 MG/0.3 ML SQ SCH ×2 (04:10→16:48)
[2020-02-09 05:56] LABS: BASOPHILS % (AUTO) 1 % (0-1); EOSINOPHILS % (AUTO) 0 % (1-7); LYMPHOCYTES % (AUTO) 14 % (22-44); MEAN CORPUSCULAR HEMOGLOBIN 29.1 pg (27.0-34.8); MEAN CORPUSCULAR HGB CONC 32.6 g/dL (32.4-35.8); MEAN PLATELET VOLUME 8.3 fL (7.4-10.4); MONOCYTES % (AUTO) 9 % (2-9); NEUTROPHILS % (AUTO) 76 % (42-75); PLATELET COUNT 209 x10^3/uL (130-400); RED BLOOD COUNT 3.67 x10^6/uL (3.82-5.3); RED CELL DISTRIBUTION WIDTH 14.1 % (9.6-15.2)
[2020-02-09 05:57] LABS: MD NO
[2020-02-09 06:11] LABS: ANION GAP 6 mmol/L (5-15); CHLORIDE 108 mmol/L (98-107); CREATININE 0.76 mg/dL (0.55-1.02)
[2020-02-09] MEDS: SODIUM CHLORIDE FLUSH 10ML SYR IVF SCH ×2 (07:04→20:15)
[2020-02-09 07:14] VITALS: BP 111/67
[2020-02-09] MEDS: DEXAMETHASONE 4 MG/ML, 1ML IVPush SCH (08:32)
[2020-02-09] MEDS: INSULIN LISPRO 100 UNITS/ML, PEN SQ-INSULIN SCH ×4 (08:32→21:13)
[2020-02-09] MEDS: ASCORBIC ACID 500 MG TABLET PO SCH ×3 (08:33→23:30)
[2020-02-09] MEDS: CHOLECALCIFEROL 5,000u TAB PO SCH (08:33)
[2020-02-09] MEDS: metFORMIN 500 MG TABLET PO SCH ×3 (08:33→16:50)
[2020-02-09] MEDS: FUROSEMIDE 20 MG/2 ML IV SCH ×2 (08:33→16:49)
[2020-02-09] MEDS: LEVOTHYROXINE 25 MCG TABLET PO SCH (08:33)
[2020-02-09] MEDS: BENZONATATE 100 MG CAPSULE PO SCH ×3 (08:34→23:30)
[2020-02-09] MEDS: SENNA/DOCUSATE TABLET PO SCH (08:34)
[2020-02-09] MEDS: THIAMINE 100MG TABLET PO SCH (08:34)
[2020-02-09] MEDS: GABAPENTIN 300 MG CAPSULE PO SCH ×3 (08:34→23:30)
[2020-02-09] MEDS: DOXYCYCLINE 100MG TABLET PO SCH ×2 (08:34→20:14)
[2020-02-09] MEDS: ZINC SULFATE 220 MG CAPSULE PO SCH (08:34)
[2020-02-09] MEDS: LISINOPRIL 20 MG TABLET PO SCH (08:34)
[2020-02-09] MEDS ORDERED: CEFD300C37 PO (08:44)
[2020-02-09] MEDS ORDERED: BENZ-17 PO (08:44)
[2020-02-09] MEDS ORDERED: DOXY100T PO (08:44)
[2020-02-09] MEDS ORDERED: DEXA6TAB6 PO (08:44)
[2020-02-09] MEDS ORDERED: ONDA4TAB7 PO (08:46)
[2020-02-09] MEDS: ASPIRIN 81 MG TABLET EC PO SCH (08:48)
[2020-02-09] MEDS: CEFTRIAXONE PMX 2GM/50ML 50 ML IVPB SCH (09:18)
[2020-02-09] MEDS: FLUTICASONE/VILANTEROL 200-25MCG/INH INH SCH (12:00)
[2020-02-09 12:23] VITALS: BP 118/68
[2020-02-09 19:36] VITALS: BP 105/57
[2020-02-09] MEDS: ACETAMINOPHEN 325 MG TABLET PO PRN (20:14)
[2020-02-09] MEDS: SIMVASTATIN 20 MG TABLET PO SCH (20:15)
[2020-02-09] MEDS: MELATONIN 5 MG TABLET PO SCH (20:15)
[2020-02-10] MEDS: ALBUTEROL HFA 90 MCG/SPRAY INH SCH ×4 (01:00→18:26)
[2020-02-10 01:35] VITALS: BP 93/55
[2020-02-10 01:41] VITALS: BP 111/72
[2020-02-10] MEDS: ACETAMINOPHEN 325 MG TABLET PO PRN ×3 (04:32→18:07)
[2020-02-10] MEDS: ONDANSETRON 2MG/ML, 2ML IVPush PRN (04:32)
[2020-02-10] MEDS: ENOXAPARIN 30 MG/0.3 ML SQ SCH (04:40)
[2020-02-10 06:05] LABS: CHLORIDE 107 mmol/L (98-107)
[2020-02-10 06:12] LABS: ANION GAP 6 mmol/L (5-15); CALCIUM 9.4 mg/dL (8.5-10.1); CREATININE 0.96 mg/dL (0.55-1.02)
[2020-02-10] MEDS: INSULIN LISPRO 100 UNITS/ML, PEN SQ-INSULIN SCH ×4 (07:00→20:25)
[2020-02-10] MEDS: FUROSEMIDE 20 MG/2 ML IV SCH ×2 (07:30→16:36)
[2020-02-10] MEDS: LISINOPRIL 20 MG TABLET PO SCH (07:38)
[2020-02-10 08:00] VITALS: BP 97/40
[2020-02-10 08:20] LABS: O2 FLOW 4 L/min
[2020-02-10] MEDS: BENZONATATE 100 MG CAPSULE PO SCH ×3 (08:55→20:28)
[2020-02-10] MEDS: DOXYCYCLINE 100MG TABLET PO SCH ×2 (08:55→20:29)
[2020-02-10] MEDS: ASCORBIC ACID 500 MG TABLET PO SCH ×3 (08:55→20:28)
[2020-02-10] MEDS: ASPIRIN 81 MG TABLET EC PO SCH (08:55)
[2020-02-10] MEDS: GABAPENTIN 300 MG CAPSULE PO SCH ×3 (08:55→20:28)
[2020-02-10] MEDS: THIAMINE 100MG TABLET PO SCH (08:55)
[2020-02-10] MEDS: ZINC SULFATE 220 MG CAPSULE PO SCH (08:55)
[2020-02-10] MEDS: CHOLECALCIFEROL 5,000u TAB PO SCH (08:56)
[2020-02-10] MEDS: LEVOTHYROXINE 25 MCG TABLET PO SCH (08:56)
[2020-02-10] MEDS: metFORMIN 850 MG TABLET PO SCH ×3 (08:56→16:37)
[2020-02-10] MEDS: FLUTICASONE/VILANTEROL 200-25MCG/INH INH SCH (09:00)
[2020-02-10] MEDS: SENNA/DOCUSATE TABLET PO SCH (09:00)
[2020-02-10] MEDS: CEFTRIAXONE PMX 2GM/50ML 50 ML IVPB SCH (09:18)
[2020-02-10] MEDS: SODIUM CHLORIDE FLUSH 10ML SYR IVF SCH ×2 (09:19→20:28)
[2020-02-10 13:01] VITALS: BP 119/66
[2020-02-10] MEDS: ENOXAPARIN 60 MG/0.6 ML SQ SCH (15:18)
[2020-02-10] MEDS: MELATONIN 5 MG TABLET PO SCH (20:27)
[2020-02-10] MEDS: SIMVASTATIN 20 MG TABLET PO SCH (20:28)
[2020-02-10 20:46] VITALS: BP 102/63
[2020-02-11] MEDS: ACETAMINOPHEN 325 MG TABLET PO PRN (00:10)
[2020-02-11] MEDS: ALBUTEROL HFA 90 MCG/SPRAY INH SCH ×5 (00:56→23:54)
[2020-02-11] MEDS: ONDANSETRON 2MG/ML, 2ML IVPush PRN ×2 (02:24→22:33)
[2020-02-11] MEDS: ENOXAPARIN 60 MG/0.6 ML SQ SCH ×2 (02:24→15:31)
[2020-02-11 02:30] VITALS: BP 129/73
[2020-02-11 04:47] LABS: C-REACTIVE PROTEIN, QUANT 8.33 mg/dL (0.02-0.49)
[2020-02-11] MEDS ORDERED: ENALAPRILAT 1.25 MG/ML, 2ML IV PRN (06:00)
[2020-02-11] MEDS: INSULIN LISPRO 100 UNITS/ML, PEN SQ-INSULIN SCH ×4 (06:03→20:59)
[2020-02-11] MEDS: FUROSEMIDE 20 MG/2 ML IV SCH ×2 (06:25→16:59)
[2020-02-11] MEDS: DEXAMETHASONE 4 MG TABLET PO SCH (06:25)
[2020-02-11] MEDS: metFORMIN 850 MG TABLET PO SCH ×3 (08:00→18:08)
[2020-02-11 08:42] LABS: CALCIUM 6.3 mg/dL (8.5-10.1)
[2020-02-11 08:43] LABS: CREATININE 0.54 mg/dL (0.55-1.02)
[2020-02-11] MEDS: LISINOPRIL 20 MG TABLET PO SCH (08:50)
[2020-02-11] MEDS: ZINC SULFATE 220 MG CAPSULE PO SCH (08:50)
[2020-02-11] MEDS: GABAPENTIN 300 MG CAPSULE PO SCH ×3 (08:50→20:58)
[2020-02-11] MEDS: DOXYCYCLINE 100MG TABLET PO SCH ×2 (08:50→20:58)
[2020-02-11] MEDS: ASPIRIN 81 MG TABLET EC PO SCH (08:51)
[2020-02-11] MEDS: ASCORBIC ACID 500 MG TABLET PO SCH ×3 (08:51→20:57)
[2020-02-11] MEDS: BENZONATATE 100 MG CAPSULE PO SCH ×3 (08:51→20:57)
[2020-02-11] MEDS: SENNA/DOCUSATE TABLET PO SCH (08:51)
[2020-02-11] MEDS: CHOLECALCIFEROL 5,000u TAB PO SCH (08:52)
[2020-02-11] MEDS: LEVOTHYROXINE 25 MCG TABLET PO SCH (08:52)
[2020-02-11] MEDS: SODIUM CHLORIDE FLUSH 10ML SYR IVF SCH ×2 (08:52→20:57)
[2020-02-11] MEDS: FLUTICASONE/VILANTEROL 200-25MCG/INH INH SCH (08:52)
[2020-02-11] MEDS: THIAMINE 100MG TABLET PO SCH (08:52)
[2020-02-11 08:58] LABS: BASOPHILS % (AUTO) 1 % (0-1); EOSINOPHILS % (AUTO) 0 % (1-7); LYMPHOCYTES % (AUTO) 7 % (22-44); MEAN CORPUSCULAR HEMOGLOBIN 29.3 pg (27.0-34.8); MEAN CORPUSCULAR HGB CONC 32.7 g/dL (32.4-35.8); MEAN PLATELET VOLUME 8.3 fL (7.4-10.4); MONOCYTES % (AUTO) 7 % (2-9); NEUTROPHILS % (AUTO) 85 % (42-75); PLATELET COUNT 166 x10^3/uL (130-400); RED BLOOD COUNT 2.71 x10^6/uL (3.82-5.3); RED CELL DISTRIBUTION WIDTH 14.2 % (9.6-15.2)
[2020-02-11 09:01] LABS: ANION GAP 5 mmol/L (5-15); CHLORIDE 118 mmol/L (98-107)
[2020-02-11 09:02] LABS: MD NO
[2020-02-11] MEDS: CEFTRIAXONE PMX 2GM/50ML 50 ML IVPB SCH (10:53)
[2020-02-11 10:56] LABS: FIO2 65 %
[2020-02-11] MEDS: SIMVASTATIN 20 MG TABLET PO SCH (20:58)
[2020-02-11] MEDS: MELATONIN 5 MG TABLET PO SCH (20:58)
[2020-02-12] MEDS: ENOXAPARIN 60 MG/0.6 ML SQ SCH ×2 (02:58→16:01)
[2020-02-12] MEDS: ACETAMINOPHEN 325 MG TABLET PO PRN ×2 (03:05→09:10)
[2020-02-12] MEDS: ALBUTEROL HFA 90 MCG/SPRAY INH SCH ×3 (05:00→17:43)
[2020-02-12 07:27] LABS: ANION GAP 5 mmol/L (5-15); BASOPHILS % (AUTO) 0 % (0-1); CALCIUM 8.7 mg/dL (8.5-10.1); CHLORIDE 104 mmol/L (98-107); CREATININE 0.87 mg/dL (0.55-1.02); EOSINOPHILS % (AUTO) 0 % (1-7); LYMPHOCYTES % (AUTO) 7 % (22-44); MEAN CORPUSCULAR HEMOGLOBIN 28.8 pg (27.0-34.8); MEAN CORPUSCULAR HGB CONC 32.4 g/dL (32.4-35.8); MEAN PLATELET VOLUME 8.9 fL (7.4-10.4); MONOCYTES % (AUTO) 6 % (2-9); NEUTROPHILS % (AUTO) 87 % (42-75); PLATELET COUNT 200 x10^3/uL (130-400); RED BLOOD COUNT 3.59 x10^6/uL (3.82-5.3)
[2020-02-12] MEDS: DEXAMETHASONE 4 MG TABLET PO SCH (07:30)
[2020-02-12 07:39] LABS: MD NO
[2020-02-12] MEDS: INSULIN LISPRO 100 UNITS/ML, PEN SQ-INSULIN SCH ×4 (08:27→20:54)
[2020-02-12] MEDS: THIAMINE 100MG TABLET PO SCH (08:28)
[2020-02-12] MEDS: CEFTRIAXONE PMX 2GM/50ML 50 ML IVPB SCH (08:28)
[2020-02-12] MEDS: ASCORBIC ACID 500 MG TABLET PO SCH ×3 (08:28→20:55)
[2020-02-12] MEDS: SENNA/DOCUSATE TABLET PO SCH (08:29)
[2020-02-12] MEDS: LEVOTHYROXINE 25 MCG TABLET PO SCH (08:29)
[2020-02-12] MEDS: metFORMIN 850 MG TABLET PO SCH ×3 (08:29→16:00)
[2020-02-12] MEDS: LISINOPRIL 20 MG TABLET PO SCH (08:29)
[2020-02-12] MEDS: CHOLECALCIFEROL 5,000u TAB PO SCH (08:29)
[2020-02-12] MEDS: BENZONATATE 100 MG CAPSULE PO SCH ×3 (08:29→20:55)
[2020-02-12] MEDS: ASPIRIN 81 MG TABLET EC PO SCH (08:29)
[2020-02-12] MEDS: ZINC SULFATE 220 MG CAPSULE PO SCH (08:30)
[2020-02-12] MEDS: FUROSEMIDE 20 MG/2 ML IV SCH ×2 (08:30→16:00)
[2020-02-12] MEDS: DOXYCYCLINE 100MG TABLET PO SCH ×2 (08:30→20:55)
[2020-02-12] MEDS: GABAPENTIN 300 MG CAPSULE PO SCH ×3 (08:32→20:55)
[2020-02-12] MEDS: SODIUM CHLORIDE FLUSH 10ML SYR IVF SCH ×2 (08:32→20:55)
[2020-02-12 08:45] LABS: BILIRUBIN,TOTAL 0.3 mg/dL (0.2-1.0)
[2020-02-12] MEDS: FLUTICASONE/VILANTEROL 200-25MCG/INH INH SCH (09:11)
[2020-02-12] MEDS ORDERED: REMDESIVIR 200 MG in SODIUM CHLORIDE 0.9% 250 ML IVPB ONE (11:00)
[2020-02-12] MEDS: ONDANSETRON 2MG/ML, 2ML IVPush PRN (19:00)
[2020-02-12] MEDS: MELATONIN 5 MG TABLET PO SCH (20:55)
[2020-02-12] MEDS: SIMVASTATIN 20 MG TABLET PO SCH (20:55)
[2020-02-13] MEDS: ALBUTEROL HFA 90 MCG/SPRAY INH SCH ×3 (00:38→12:00)
[2020-02-13] MEDS: ACETAMINOPHEN 325 MG TABLET PO PRN (02:59)
[2020-02-13] MEDS: ENOXAPARIN 60 MG/0.6 ML SQ SCH ×3 (02:59→17:08)
[2020-02-13 04:00] VITALS: BP 130/52
[2020-02-13 05:32] LABS: INTERNATIONAL NORMALIZED RATIO 0.96 (0.93-1.1); PROTHROMBIN TIME 10.2 Seconds (9.6-11.5)
[2020-02-13 05:39] LABS: BASOPHILS % (AUTO) 1 % (0-1); EOSINOPHILS % (AUTO) 2 % (1-7); LYMPHOCYTES % (AUTO) 6 % (22-44); MEAN CORPUSCULAR HEMOGLOBIN 28.7 pg (27.0-34.8); MEAN CORPUSCULAR HGB CONC 32.6 g/dL (32.4-35.8); MONOCYTES % (AUTO) 4 % (2-9); NEUTROPHILS % (AUTO) 87 % (42-75); PLATELET COUNT 296 x10^3/uL (130-400); RED CELL DISTRIBUTION WIDTH 14.4 % (9.6-15.2)
[2020-02-13 05:42] LABS: MD NO
[2020-02-13 05:52] LABS: ALANINE AMINOTRANSFERASE 45 U/L (12-78); ALBUMIN 2.7 g/dL (3.4-5.0); ANION GAP 2 mmol/L (5-15); CALCIUM 8.7 mg/dL (8.5-10.1); CHLORIDE 103 mmol/L (98-107); CREATININE 0.78 mg/dL (0.55-1.02)
[2020-02-13 05:55] LABS: ALKALINE PHOSPHATASE 74 U/L (45-117); BILIRUBIN,TOTAL 0.3 mg/dL (0.2-1.0); TOTAL PROTEIN 7.1 g/dL (6.4-8.2)
[2020-02-13] MEDS: INSULIN LISPRO 100 UNITS/ML, PEN SQ-INSULIN SCH ×3 (06:40→21:00)
[2020-02-13] MEDS: SENNA/DOCUSATE TABLET PO SCH (09:00)
[2020-02-13] MEDS: FLUTICASONE/VILANTEROL 200-25MCG/INH INH SCH (09:00)
[2020-02-13] MEDS: CEFTRIAXONE PMX 2GM/50ML 50 ML IVPB SCH (09:28)
[2020-02-13] MEDS: ASCORBIC ACID 500 MG TABLET PO SCH ×3 (09:29→21:14)
[2020-02-13] MEDS: BENZONATATE 100 MG CAPSULE PO SCH ×3 (09:29→21:14)
[2020-02-13] MEDS: FUROSEMIDE 20 MG/2 ML IV SCH ×2 (09:29→17:08)
[2020-02-13] MEDS: THIAMINE 100MG TABLET PO SCH (09:29)
[2020-02-13] MEDS: metFORMIN 850 MG TABLET PO SCH ×2 (09:29→12:23)
[2020-02-13] MEDS: LEVOTHYROXINE 25 MCG TABLET PO SCH (09:29)
[2020-02-13] MEDS: LISINOPRIL 20 MG TABLET PO SCH (09:30)
[2020-02-13] MEDS: DOXYCYCLINE 100MG TABLET PO SCH ×2 (09:30→21:14)
[2020-02-13] MEDS: GABAPENTIN 300 MG CAPSULE PO SCH ×3 (09:30→21:15)
[2020-02-13] MEDS: CHOLECALCIFEROL 5,000u TAB PO SCH (09:30)
[2020-02-13] MEDS: ASPIRIN 81 MG TABLET EC PO SCH (09:30)
[2020-02-13] MEDS: ZINC SULFATE 220 MG CAPSULE PO SCH (09:30)
[2020-02-13] MEDS: DEXAMETHASONE 4 MG TABLET PO SCH (09:30)
[2020-02-13] MEDS: SODIUM CHLORIDE FLUSH 10ML SYR IVF SCH ×2 (09:33→21:14)
[2020-02-13] MEDS: REMDESIVIR 100 MG in SODIUM CHLORIDE 0.9% 250 ML IVPB SCH (11:44)
[2020-02-13] MEDS ORDERED: PROPOFOL 100 ML IV ONE ×2 (12:28→14:46)
[2020-02-13] MEDS ORDERED: ROCURONIUM 10MG/ML,5ML ONE (14:00)
[2020-02-13] MEDS ORDERED: PROPOFOL 10 MG/ML, 100ML IV ONE (14:00)
[2020-02-13] MEDS ORDERED: VECURONIUM 10 MG ONE (14:00)
[2020-02-13] MEDS ORDERED: PROPOFOL 10 MG/ML, 20ML ONE (14:00)
[2020-02-13] MEDS ORDERED: LIDOCAINE-MPF 1%, 2ML ENDO PRN (15:00)
[2020-02-13] MEDS ORDERED: PHARMACY MAY ADJ FOR RENAL FX MC SCH (15:00)
[2020-02-13] MEDS ORDERED: LACTULOSE 20 GM/30 ML UDC NG PRN (15:00)
[2020-02-13] MEDS ORDERED: SENNA/DOCUSATE TABLET NG PRN (15:00)
[2020-02-13] MEDS: PROPOFOL 100 ML IV PRN ×3 (15:20→22:07)
[2020-02-13] MEDS ORDERED: VECURONIUM 10 MG IVPush ONE (15:30)
[2020-02-13] MEDS: SIMVASTATIN 20 MG TABLET PO SCH (21:14)
[2020-02-13] MEDS: MELATONIN 5 MG TABLET PO SCH (21:15)
[2020-02-14] MEDS: PROPOFOL 100 ML IV PRN ×9 (01:09→22:37)
[2020-02-14] MEDS: FENTANYL PF 100 MCG/2ML IVPush PRN ×4 (02:03→22:37)
[2020-02-14] MEDS: INSULIN LISPRO 100 UNITS/ML, PEN SQ-INSULIN SCH ×4 (03:00→21:25)
[2020-02-14] MEDS: ENOXAPARIN 60 MG/0.6 ML SQ SCH (03:56)
[2020-02-14 04:00] VITALS: BP 147/63
[2020-02-14 04:44] LABS: ALBUMIN 2.7 g/dL (3.4-5.0); ANION GAP 5 mmol/L (5-15); CALCIUM 9.4 mg/dL (8.5-10.1); CHLORIDE 102 mmol/L (98-107)
[2020-02-14 04:48] LABS: ALANINE AMINOTRANSFERASE 37 U/L (12-78); ALKALINE PHOSPHATASE 83 U/L (45-117); BILIRUBIN,TOTAL 0.4 mg/dL (0.2-1.0); TOTAL PROTEIN 6.7 g/dL (6.4-8.2)
[2020-02-14 05:32] LABS: BASOPHILS % (AUTO) 0 % (0-1); EOSINOPHILS % (AUTO) 0 % (1-7); LYMPHOCYTES % (AUTO) 10 % (22-44); MEAN CORPUSCULAR HEMOGLOBIN 28.2 pg (27.0-34.8); MEAN CORPUSCULAR HGB CONC 32.4 g/dL (32.4-35.8); MEAN PLATELET VOLUME 8.7 fL (7.4-10.4); MONOCYTES % (AUTO) 5 % (2-9); NEUTROPHILS % (AUTO) 84 % (42-75); PLATELET COUNT 317 x10^3/uL (130-400); RED BLOOD COUNT 3.83 x10^6/uL (3.82-5.3); RED CELL DISTRIBUTION WIDTH 14.3 % (9.6-15.2)
[2020-02-14 05:38] LABS: MD NO
[2020-02-14] MEDS ORDERED: MAGNESIUM SULFATE PMX 2GM/50ML 50 ML IV ONE (06:30)
[2020-02-14] MEDS: DEXAMETHASONE 4 MG TABLET PO SCH (08:00)
[2020-02-14] MEDS: ASPIRIN 81 MG TABLET EC PO SCH (09:00)
[2020-02-14] MEDS: SENNA/DOCUSATE TABLET PO SCH (09:00)
[2020-02-14] MEDS: THIAMINE 100MG TABLET PO SCH (09:00)
[2020-02-14] MEDS: DOXYCYCLINE 100MG TABLET PO SCH (09:00)
[2020-02-14] MEDS: ASCORBIC ACID 500 MG TABLET PO SCH ×3 (09:00→20:18)
[2020-02-14] MEDS: BENZONATATE 100 MG CAPSULE PO SCH ×3 (09:00→20:18)
[2020-02-14] MEDS: GABAPENTIN 300 MG CAPSULE PO SCH (09:00)
[2020-02-14] MEDS: ZINC SULFATE 220 MG CAPSULE PO SCH (09:00)
[2020-02-14] MEDS: CHOLECALCIFEROL 5,000u TAB PO SCH (09:00)
[2020-02-14] MEDS: LEVOTHYROXINE 25 MCG TABLET PO SCH (09:00)
[2020-02-14] MEDS: SODIUM CHLORIDE FLUSH 10ML SYR IVF SCH ×2 (09:35→20:18)
[2020-02-14] MEDS: CEFTRIAXONE PMX 2GM/50ML 50 ML IVPB SCH (09:35)
[2020-02-14] MEDS: PANTOPRAZOLE 40 MG IV IVPush SCH ×2 (11:16→20:18)
[2020-02-14] MEDS: REMDESIVIR 100 MG in SODIUM CHLORIDE 0.9% 250 ML IVPB SCH (11:16)
[2020-02-14] MEDS ORDERED: SODIUM CHLORIDE 0.9% 500 ML IV SCH (11:30)
[2020-02-14] MEDS: GABAPENTIN 250 MG/5 ML ORAL SOL PO SCH ×3 (12:00→20:18)
[2020-02-14] MEDS: METOCLOPRAMIDE 5 MG/ML, 2ML IVPush SCH ×2 (12:42→17:41)
--- NOTE | 2020-02-14 13:27 | NUR ---
TF per RD recs: TF to start if/when medically appropriate; on hold d/t high OGT output of 700mL bloody/dark/coffee-ground - Vital HP 50mL/hr (ON high propofol); 60mL/hr (LOW propofol); - Vital AF 1.2 @65mL/hr (OFF propofol) Addendum: 02/14/20 at [address] Amended: Links added.
[2020-02-14] MEDS: DOXYCYCLINE 100 MG in DEXTROSE 5% 250 ML IV SCH ×2 (14:39→22:40)
[2020-02-14] MEDS ORDERED: SODIUM CHLORIDE 0.9% 1,000 ML IV ONE (16:30)
[2020-02-14] MEDS: MELATONIN 5 MG TABLET PO SCH (20:18)
[2020-02-14] MEDS: SIMVASTATIN 20 MG TABLET PO SCH (20:19)
[2020-02-15] MEDS: METOCLOPRAMIDE 5 MG/ML, 2ML IVPush SCH ×5 (00:24→23:59)
[2020-02-15] MEDS: FENTANYL PF 100 MCG/2ML IVPush PRN ×3 (01:41→10:24)
[2020-02-15] MEDS: PROPOFOL 100 ML IV PRN ×9 (02:57→22:15)
[2020-02-15] MEDS: INSULIN LISPRO 100 UNITS/ML, PEN SQ-INSULIN SCH ×4 (03:00→20:30)
[2020-02-15 03:18] LABS: BASOPHILS % (AUTO) 1 % (0-1); EOSINOPHILS % (AUTO) 2 % (1-7); LYMPHOCYTES % (AUTO) 7 % (22-44); MEAN CORPUSCULAR HEMOGLOBIN 28.3 pg (27.0-34.8); MEAN CORPUSCULAR HGB CONC 32.5 g/dL (32.4-35.8); MEAN PLATELET VOLUME 8.2 fL (7.4-10.4); MONOCYTES % (AUTO) 6 % (2-9); NEUTROPHILS % (AUTO) 84 % (42-75); PLATELET COUNT 315 x10^3/uL (130-400); RED CELL DISTRIBUTION WIDTH 14.3 % (9.6-15.2)
[2020-02-15 03:30] LABS: ALANINE AMINOTRANSFERASE 30 U/L (12-78); ALBUMIN 2.4 g/dL (3.4-5.0); ANION GAP 5 mmol/L (5-15); CALCIUM 8.4 mg/dL (8.5-10.1); CHLORIDE 102 mmol/L (98-107); CREATININE 1.06 mg/dL (0.55-1.02)
[2020-02-15 03:33] LABS: ALKALINE PHOSPHATASE 80 U/L (45-117); BILIRUBIN,TOTAL 0.5 mg/dL (0.2-1.0)
[2020-02-15 03:59] LABS: MD SCAN
[2020-02-15 04:22] VITALS: BP 112/49
[2020-02-15] MEDS: ALBUTEROL/IPRATROPIUM 2.5MG/0.5MG, 3 ML NPPB SCH ×4 (06:44→18:41)
[2020-02-15] MEDS: BUDESONIDE 0.5 MG/2 ML INHA NPPB SCH ×2 (09:00→18:41)
[2020-02-15] MEDS: BENZONATATE 100 MG CAPSULE PO SCH ×3 (09:00→20:18)
[2020-02-15] MEDS: CEFTRIAXONE PMX 2GM/50ML 50 ML IVPB SCH (09:30)
[2020-02-15] MEDS: PANTOPRAZOLE 40 MG IV IVPush SCH ×2 (09:30→20:17)
[2020-02-15] MEDS: GABAPENTIN 250 MG/5 ML ORAL SOL PO SCH ×3 (09:31→20:18)
[2020-02-15] MEDS: ASCORBIC ACID 500 MG TABLET PO SCH ×3 (10:29→20:17)
[2020-02-15] MEDS: ZINC SULFATE 220 MG CAPSULE PO SCH (10:29)
[2020-02-15] MEDS: SENNA/DOCUSATE TABLET PO SCH (10:29)
[2020-02-15] MEDS: CHOLECALCIFEROL 5,000u TAB PO SCH (10:29)
[2020-02-15] MEDS: THIAMINE 100MG TABLET PO SCH (10:29)
[2020-02-15] MEDS: ENOXAPARIN 60 MG/0.6 ML SQ SCH (10:30)
[2020-02-15] MEDS: DEXAMETHASONE 4 MG TABLET PO SCH (10:30)
[2020-02-15] MEDS: ASPIRIN 81 MG TABLET EC PO SCH (10:30)
[2020-02-15] MEDS: LEVOTHYROXINE 25 MCG TABLET PO SCH (10:30)
[2020-02-15] MEDS: SODIUM CHLORIDE FLUSH 10ML SYR IVF SCH ×2 (10:31→20:17)
[2020-02-15] MEDS: REMDESIVIR 100 MG in SODIUM CHLORIDE 0.9% 250 ML IVPB SCH (11:04)
[2020-02-15] MEDS: DOXYCYCLINE 100 MG in DEXTROSE 5% 250 ML IV SCH ×2 (11:04→22:43)
[2020-02-15] MEDS: FENTANYL PF 1,000 MCG in SODIUM CHLORIDE 0.9% 80 ML IV PRN ×2 (12:40→23:57)
[2020-02-15] MEDS: MELATONIN 5 MG TABLET PO SCH (20:17)
[2020-02-15] MEDS: SIMVASTATIN 20 MG TABLET PO SCH (20:19)
[2020-02-16] MEDS: ALBUTEROL/IPRATROPIUM 2.5MG/0.5MG, 3 ML NPPB SCH ×4 (00:20→18:50)
[2020-02-16] MEDS: PROPOFOL 100 ML IV PRN ×7 (01:04→21:34)
[2020-02-16] MEDS: INSULIN LISPRO 100 UNITS/ML, PEN SQ-INSULIN SCH ×4 (02:53→20:51)
[2020-02-16 03:19] LABS: BASOPHILS % (AUTO) 1 % (0-1); EOSINOPHILS % (AUTO) 1 % (1-7); LYMPHOCYTES % (AUTO) 5 % (22-44); MEAN CORPUSCULAR HEMOGLOBIN 27.7 pg (27.0-34.8); MEAN CORPUSCULAR HGB CONC 31.8 g/dL (32.4-35.8); MEAN PLATELET VOLUME 8.3 fL (7.4-10.4); MONOCYTES % (AUTO) 6 % (2-9); NEUTROPHILS % (AUTO) 88 % (42-75); PLATELET COUNT 232 x10^3/uL (130-400); RED BLOOD COUNT 3.89 x10^6/uL (3.82-5.3); RED CELL DISTRIBUTION WIDTH 14.5 % (9.6-15.2)
[2020-02-16 03:59] VITALS: BP 121/37
[2020-02-16 04:29] LABS: MD SCAN
[2020-02-16] MEDS: METOCLOPRAMIDE 5 MG/ML, 2ML IVPush SCH ×4 (05:44→23:54)
[2020-02-16 06:49] LABS: ALANINE AMINOTRANSFERASE 36 U/L (12-78); ALBUMIN 2.5 g/dL (3.4-5.0); ANION GAP 7 mmol/L (5-15); CALCIUM 8.4 mg/dL (8.5-10.1); CHLORIDE 103 mmol/L (98-107); CREATININE 0.89 mg/dL (0.55-1.02)
[2020-02-16 06:52] LABS: ALKALINE PHOSPHATASE 95 U/L (45-117); BILIRUBIN,TOTAL 0.4 mg/dL (0.2-1.0); TOTAL PROTEIN 6.1 g/dL (6.4-8.2); TRIGLYCERIDES 112 mg/dL (50-200)
[2020-02-16] MEDS: BUDESONIDE 0.5 MG/2 ML INHA NPPB SCH ×2 (07:00→18:50)
[2020-02-16] MEDS: CEFTRIAXONE PMX 2GM/50ML 50 ML IVPB SCH (08:35)
[2020-02-16] MEDS: SODIUM CHLORIDE FLUSH 10ML SYR IVF SCH ×2 (09:20→20:49)
[2020-02-16] MEDS: THIAMINE 100MG TABLET PO SCH (09:20)
[2020-02-16] MEDS: GABAPENTIN 250 MG/5 ML ORAL SOL PO SCH ×3 (09:20→20:48)
[2020-02-16] MEDS: ZINC SULFATE 220 MG CAPSULE PO SCH (09:20)
[2020-02-16] MEDS: DEXAMETHASONE 4 MG TABLET PO SCH (09:20)
[2020-02-16] MEDS: LEVOTHYROXINE 25 MCG TABLET PO SCH (09:20)
[2020-02-16] MEDS: SENNA/DOCUSATE TABLET PO SCH (09:21)
[2020-02-16] MEDS: ASPIRIN 81 MG TABLET EC PO SCH (09:21)
[2020-02-16] MEDS: PANTOPRAZOLE 40 MG IV IVPush SCH ×2 (09:21→20:48)
[2020-02-16] MEDS: ENOXAPARIN 60 MG/0.6 ML SQ SCH (09:21)
[2020-02-16] MEDS: CHOLECALCIFEROL 5,000u TAB PO SCH (09:21)
[2020-02-16] MEDS: ASCORBIC ACID 500 MG TABLET PO SCH ×3 (09:21→20:48)
[2020-02-16] MEDS: BENZONATATE 100 MG CAPSULE PO SCH (09:21)
[2020-02-16] MEDS ORDERED: FUROSEMIDE 40 MG/4 ML IV ONE (10:00)
[2020-02-16] MEDS ORDERED: POTASSIUM CHLORIDE 20 MEQ PACKET PO ONE (10:00)
[2020-02-16] MEDS: DOXYCYCLINE 100 MG in DEXTROSE 5% 250 ML IV SCH ×2 (10:48→22:35)
[2020-02-16] MEDS: REMDESIVIR 100 MG in SODIUM CHLORIDE 0.9% 250 ML IVPB SCH (11:08)
[2020-02-16] MEDS: FENTANYL PF 1,000 MCG in SODIUM CHLORIDE 0.9% 80 ML IV PRN (14:38)
[2020-02-16] MEDS: SIMVASTATIN 20 MG TABLET PO SCH (20:48)
[2020-02-16] MEDS: MELATONIN 5 MG TABLET PO SCH (20:49)
[2020-02-16] MEDS ORDERED: DOXYCYCLINE 100 MG in DEXTROSE 5% 250 ML IV SCH (23:00)
[2020-02-17] MEDS: ALBUTEROL/IPRATROPIUM 2.5MG/0.5MG, 3 ML NPPB SCH ×4 (00:10→19:10)
[2020-02-17] MEDS: PROPOFOL 100 ML IV PRN ×4 (01:20→22:42)
[2020-02-17] MEDS: ACETAMINOPHEN 650 MG/20.3 ML UDC PO PRN (03:07)
[2020-02-17] MEDS: INSULIN LISPRO 100 UNITS/ML, PEN SQ-INSULIN SCH ×4 (03:23→21:35)
[2020-02-17 04:01] LABS: MEAN CORPUSCULAR HEMOGLOBIN 27.5 pg (27.0-34.8); MEAN CORPUSCULAR HGB CONC 31.3 g/dL (32.4-35.8); MEAN PLATELET VOLUME 8.8 fL (7.4-10.4); PLATELET COUNT 195 x10^3/uL (130-400); RED BLOOD COUNT 3.74 x10^6/uL (3.82-5.3); RED CELL DISTRIBUTION WIDTH 14.3 % (9.6-15.2)
[2020-02-17 04:19] VITALS: BP 102/43
[2020-02-17 04:21] LABS: ANION GAP 7 mmol/L (5-15); CALCIUM 8.3 mg/dL (8.5-10.1); CHLORIDE 103 mmol/L (98-107); CREATININE 1.08 mg/dL (0.55-1.02)
[2020-02-17 04:22] LABS: BILIRUBIN,TOTAL 0.5 mg/dL (0.2-1.0)
[2020-02-17 04:40] LABS: MD YES
[2020-02-17 04:42] LABS: BAND#(MANUAL) 0.38 x10^3/uL; BANDS%(MANUAL) 2 % (0-7); BASOS#(MANUAL) 0.19 x10^3/uL (0-0.1); BASOS% (MANUAL) 1 % (0-1); LYMPH#(MANUAL) 0.95 x10^3/uL (1-3.4); LYMPHS% (MANUAL) 5 % (22-44); METAMYELOCYTES# (MANUAL) 0.19 x10^3/uL (0-0); METAMYELOCYTES% (MANUAL) 1 % (0-1); MONOS#(MANUAL) 0.95 x10^3/uL (0.3-2.7); MONOS% (MANUAL) 5 % (2-9); MYELOCYTES# (MANUAL) 0.19 x10^3/uL (0-0); MYELOCYTES% (MANUAL) 1 % (0-0); SEG#(MANUAL) 16.07 x10^3/uL (1.8-6.8); SEGS% (MANUAL) 85 % (42-75)
[2020-02-17 04:43] LABS: <PLATELET ESTIMATE> ADEQUATE; OVALOCYTES 1+
[2020-02-17 04:44] LABS: <PLT MORPHOLOGY> NORMAL PLT MORPH
[2020-02-17] MEDS: METOCLOPRAMIDE 5 MG/ML, 2ML IVPush SCH ×4 (05:35→23:31)
[2020-02-17] MEDS: MEROPENEM 1 GM in SODIUM CHLORIDE 0.9% 100 ML IV SCH ×3 (06:14→21:45)
[2020-02-17] MEDS: BUDESONIDE 0.5 MG/2 ML INHA NPPB SCH ×2 (07:00→19:10)
[2020-02-17] MEDS: DEXAMETHASONE 4 MG TABLET PO SCH (08:05)
[2020-02-17] MEDS: SENNA/DOCUSATE TABLET PO SCH (08:06)
[2020-02-17] MEDS: ASCORBIC ACID 500 MG TABLET PO SCH ×3 (08:06→21:32)
[2020-02-17] MEDS: SODIUM CHLORIDE FLUSH 10ML SYR IVF SCH ×2 (08:06→21:33)
[2020-02-17] MEDS: PANTOPRAZOLE 40 MG IV IVPush SCH ×2 (08:06→21:32)
[2020-02-17] MEDS: GABAPENTIN 250 MG/5 ML ORAL SOL PO SCH ×3 (08:06→21:34)
[2020-02-17] MEDS: THIAMINE 100MG TABLET PO SCH (08:06)
[2020-02-17] MEDS: LEVOTHYROXINE 25 MCG TABLET PO SCH (08:06)
[2020-02-17] MEDS: ASPIRIN 81 MG TABLET EC PO SCH (08:06)
[2020-02-17] MEDS: ENOXAPARIN 60 MG/0.6 ML SQ SCH (08:07)
[2020-02-17] MEDS: ZINC SULFATE 220 MG CAPSULE PO SCH (08:07)
[2020-02-17] MEDS: CHOLECALCIFEROL 5,000u TAB PO SCH (08:07)
[2020-02-17] MEDS ORDERED: CEFTRIAXONE PMX 2GM/50ML 50 ML IVPB SCH (09:00)
[2020-02-17] MEDS: DOXYCYCLINE 100 MG in DEXTROSE 5% 250 ML IV SCH ×2 (10:27→22:43)
[2020-02-17] MEDS ORDERED: CATHFLO-ALTEPLASE 2 MG/2 ML CATHFLUSH ONE (15:00)
[2020-02-17] MEDS ORDERED: INSULIN GLARGINE 100 UNITS/ML, PEN SQ-INSULIN SCH (21:00)
[2020-02-17] MEDS: MELATONIN 5 MG TABLET PO SCH (21:32)
[2020-02-17] MEDS: SIMVASTATIN 20 MG TABLET PO SCH (21:33)
[2020-02-17] MEDS: INSULIN GLARGINE 100 UNITS/ML, PEN SQ-INSULIN SCH (21:54)
[2020-02-18] MEDS: ALBUTEROL/IPRATROPIUM 2.5MG/0.5MG, 3 ML NPPB SCH ×4 (00:40→18:51)
[2020-02-18] MEDS: PROPOFOL 100 ML IV PRN ×4 (03:11→23:30)
[2020-02-18] MEDS: INSULIN LISPRO 100 UNITS/ML, PEN SQ-INSULIN SCH ×4 (03:29→21:04)
[2020-02-18 04:00] VITALS: BP 99/33
[2020-02-18 04:33] LABS: MEAN CORPUSCULAR HEMOGLOBIN 27.7 pg (27.0-34.8); MEAN CORPUSCULAR HGB CONC 31.6 g/dL (32.4-35.8); MEAN PLATELET VOLUME 9.4 fL (7.4-10.4); PLATELET COUNT 214 x10^3/uL (130-400); RED BLOOD COUNT 3.43 x10^6/uL (3.82-5.3); RED CELL DISTRIBUTION WIDTH 14.5 % (9.6-15.2)
[2020-02-18 04:42] LABS: ANION GAP 8 mmol/L (5-15); CALCIUM 8.4 mg/dL (8.5-10.1); CHLORIDE 101 mmol/L (98-107)
[2020-02-18 04:44] LABS: BILIRUBIN,TOTAL 0.5 mg/dL (0.2-1.0); CREATININE 1.11 mg/dL (0.55-1.02)
[2020-02-18] MEDS: METOCLOPRAMIDE 5 MG/ML, 2ML IVPush SCH ×3 (05:31→18:24)
[2020-02-18] MEDS: MEROPENEM 1 GM in SODIUM CHLORIDE 0.9% 100 ML IV SCH ×2 (05:31→13:12)
[2020-02-18 05:46] LABS: MD YES
[2020-02-18 05:48] LABS: BAND#(MANUAL) 0.17 x10^3/uL; BANDS%(MANUAL) 1 % (0-7); LYMPH#(MANUAL) 0.34 x10^3/uL (1-3.4); LYMPHS% (MANUAL) 2 % (22-44); MONOS% (MANUAL) 7 % (2-9); SEG#(MANUAL) 15.39 x10^3/uL (1.8-6.8); SEGS% (MANUAL) 90 % (42-75)
[2020-02-18 05:49] LABS: <PLATELET ESTIMATE> ADEQUATE; ANISOCYTOSIS 1+; LARGE PLATELETS 1+
[2020-02-18] MEDS: BUDESONIDE 0.5 MG/2 ML INHA NPPB SCH ×2 (07:10→18:51)
[2020-02-18] MEDS: ASCORBIC ACID 500 MG TABLET PO SCH ×3 (09:28→21:03)
[2020-02-18] MEDS: ASPIRIN 81 MG TABLET EC PO SCH (09:29)
[2020-02-18] MEDS: THIAMINE 100MG TABLET PO SCH (09:29)
[2020-02-18] MEDS: ZINC SULFATE 220 MG CAPSULE PO SCH (09:29)
[2020-02-18] MEDS: LEVOTHYROXINE 25 MCG TABLET PO SCH (09:29)
[2020-02-18] MEDS: PANTOPRAZOLE 40 MG IV IVPush SCH ×2 (09:30→21:03)
[2020-02-18] MEDS: SENNA/DOCUSATE TABLET PO SCH (09:31)
[2020-02-18] MEDS: ENOXAPARIN 60 MG/0.6 ML SQ SCH (09:31)
[2020-02-18] MEDS: CHOLECALCIFEROL 5,000u TAB PO SCH (09:31)
[2020-02-18] MEDS: INSULIN GLARGINE 100 UNITS/ML, PEN SQ-INSULIN SCH ×2 (09:33→21:05)
[2020-02-18] MEDS: SODIUM CHLORIDE FLUSH 10ML SYR IVF SCH ×2 (09:35→21:03)
[2020-02-18] MEDS: GABAPENTIN 250 MG/5 ML ORAL SOL PO SCH ×3 (09:38→21:04)
[2020-02-18] MEDS: DOXYCYCLINE 100 MG in DEXTROSE 5% 250 ML IV SCH (10:53)
[2020-02-18] MEDS: FENTANYL PF 1,000 MCG in SODIUM CHLORIDE 0.9% 80 ML IV PRN (11:43)
[2020-02-18] MEDS: SIMVASTATIN 20 MG TABLET PO SCH (21:03)
[2020-02-18] MEDS: MELATONIN 5 MG TABLET PO SCH (21:04)
[2020-02-19] MEDS: ALBUTEROL/IPRATROPIUM 2.5MG/0.5MG, 3 ML NPPB SCH ×4 (00:56→18:40)
[2020-02-19] MEDS: METOCLOPRAMIDE 5 MG/ML, 2ML IVPush SCH ×5 (01:04→23:30)
[2020-02-19] MEDS: MEROPENEM 1 GM in SODIUM CHLORIDE 0.9% 100 ML IV SCH ×2 (01:04→14:10)
[2020-02-19] MEDS: INSULIN LISPRO 100 UNITS/ML, PEN SQ-INSULIN SCH ×4 (03:13→20:45)
[2020-02-19 03:23] LABS: BASOPHILS % (AUTO) 1 % (0-1); EOSINOPHILS % (AUTO) 2 % (1-7); LYMPHOCYTES % (AUTO) 6 % (22-44); MEAN CORPUSCULAR HEMOGLOBIN 27.6 pg (27.0-34.8); MEAN CORPUSCULAR HGB CONC 31.6 g/dL (32.4-35.8); MEAN PLATELET VOLUME 9.1 fL (7.4-10.4); MONOCYTES % (AUTO) 8 % (2-9); NEUTROPHILS % (AUTO) 83 % (42-75); PLATELET COUNT 245 x10^3/uL (130-400); RED BLOOD COUNT 3.36 x10^6/uL (3.82-5.3); RED CELL DISTRIBUTION WIDTH 14.5 % (9.6-15.2)
[2020-02-19] MEDS: PROPOFOL 100 ML IV PRN ×5 (03:31→21:47)
[2020-02-19 03:35] LABS: ANION GAP 4 mmol/L (5-15); CALCIUM 8.8 mg/dL (8.5-10.1); CHLORIDE 102 mmol/L (98-107); CREATININE 0.86 mg/dL (0.55-1.02); TRIGLYCERIDES 96 mg/dL (50-200)
[2020-02-19 03:36] LABS: BILIRUBIN,TOTAL 0.5 mg/dL (0.2-1.0)
[2020-02-19 04:27] VITALS: BP 114/34
[2020-02-19 04:46] LABS: MD SCAN
[2020-02-19] MEDS: FENTANYL PF 1,000 MCG in SODIUM CHLORIDE 0.9% 80 ML IV PRN ×2 (05:20→17:50)
[2020-02-19] MEDS: BUDESONIDE 0.5 MG/2 ML INHA NPPB SCH ×2 (07:00→18:40)
[2020-02-19] MEDS: SENNA/DOCUSATE TABLET PO SCH ×2 (09:00→09:22)
[2020-02-19] MEDS: LEVOTHYROXINE 25 MCG TABLET PO SCH (09:21)
[2020-02-19] MEDS: PANTOPRAZOLE 40 MG IV IVPush SCH ×2 (09:21→20:45)
[2020-02-19] MEDS: ENOXAPARIN 60 MG/0.6 ML SQ SCH (09:21)
[2020-02-19] MEDS: ASPIRIN 81 MG TABLET EC PO SCH (09:22)
[2020-02-19] MEDS: ASCORBIC ACID 500 MG TABLET PO SCH (09:22)
[2020-02-19] MEDS: GABAPENTIN 250 MG/5 ML ORAL SOL PO SCH ×3 (09:22→20:45)
[2020-02-19] MEDS: THIAMINE 100MG TABLET PO SCH (09:22)
[2020-02-19] MEDS: CHOLECALCIFEROL 5,000u TAB PO SCH (09:22)
[2020-02-19] MEDS: ZINC SULFATE 220 MG CAPSULE PO SCH (09:22)
[2020-02-19] MEDS: SODIUM CHLORIDE FLUSH 10ML SYR IVF SCH ×2 (09:30→20:45)
[2020-02-19] MEDS: INSULIN GLARGINE 100 UNITS/ML, PEN SQ-INSULIN SCH ×2 (09:30→20:45)
[2020-02-19] MEDS: SIMVASTATIN 20 MG TABLET PO SCH (20:45)
[2020-02-19] MEDS: MELATONIN 5 MG TABLET PO SCH (20:45)
[2020-02-20] MEDS: ALBUTEROL/IPRATROPIUM 2.5MG/0.5MG, 3 ML NPPB SCH ×4 (00:45→18:43)
[2020-02-20] MEDS: MEROPENEM 1 GM in SODIUM CHLORIDE 0.9% 100 ML IV SCH ×3 (01:01→18:48)
[2020-02-20] MEDS: PROPOFOL 100 ML IV PRN ×7 (01:37→23:18)
[2020-02-20] MEDS: INSULIN LISPRO 100 UNITS/ML, PEN SQ-INSULIN SCH ×4 (02:45→21:00)
[2020-02-20 04:00] VITALS: BP 101/37
[2020-02-20 04:33] LABS: MEAN CORPUSCULAR HEMOGLOBIN 28.2 pg (27.0-34.8); MEAN CORPUSCULAR HGB CONC 32.2 g/dL (32.4-35.8); MEAN PLATELET VOLUME 9.6 fL (7.4-10.4); PLATELET COUNT 265 x10^3/uL (130-400); RED BLOOD COUNT 3.14 x10^6/uL (3.82-5.3); RED CELL DISTRIBUTION WIDTH 14.6 % (9.6-15.2)
[2020-02-20 04:48] LABS: ANION GAP 4 mmol/L (5-15); CALCIUM 8.8 mg/dL (8.5-10.1); CHLORIDE 102 mmol/L (98-107)
[2020-02-20] MEDS: METOCLOPRAMIDE 5 MG/ML, 2ML IVPush SCH ×4 (05:27→23:22)
[2020-02-20 06:08] LABS: MD YES
[2020-02-20 06:11] LABS: BAND#(MANUAL) 1.86 x10^3/uL; BANDS%(MANUAL) 13 % (0-7); EOS#(MANUAL) 0.43 x10^3/uL (0.0-0.4); EOS% (MANUAL) 3 % (1-7); LYMPH#(MANUAL) 1.43 x10^3/uL (1-3.4); LYMPHS% (MANUAL) 10 % (22-44); METAMYELOCYTES# (MANUAL) 0.57 x10^3/uL (0-0); METAMYELOCYTES% (MANUAL) 4 % (0-1); MONOS#(MANUAL) 0.57 x10^3/uL (0.3-2.7); MONOS% (MANUAL) 4 % (2-9); SEG#(MANUAL) 9.44 x10^3/uL (1.8-6.8); SEGS% (MANUAL) 66 % (42-75)
[2020-02-20 06:13] LABS: <PLATELET ESTIMATE> ADEQUATE; ANISOCYTOSIS 1+; LARGE PLATELETS 1+; POLYCHROMASIA 1+
[2020-02-20] MEDS: FENTANYL PF 1,000 MCG in SODIUM CHLORIDE 0.9% 80 ML IV PRN ×2 (06:21→17:59)
[2020-02-20] MEDS ORDERED: VANCOMYCIN 2,500 MG in SODIUM CHLORIDE 0.9% 500 ML IV ONE (07:00)
[2020-02-20] MEDS ORDERED: PHARMACOKINETIC CONSULTATION MC ONE (07:00)
[2020-02-20] MEDS ORDERED: VANCOMYCIN PER PHARMACY MC PRN (07:00)
[2020-02-20] MEDS ORDERED: PHARMACOKINETIC MONITORING MC PRN (07:00)
[2020-02-20] MEDS: ENOXAPARIN 60 MG/0.6 ML SQ SCH (08:30)
[2020-02-20] MEDS: GABAPENTIN 250 MG/5 ML ORAL SOL PO SCH ×3 (08:30→21:00)
[2020-02-20] MEDS: PANTOPRAZOLE 40 MG IV IVPush SCH ×2 (08:31→21:03)
[2020-02-20] MEDS: ASPIRIN 81 MG TABLET EC PO SCH (08:31)
[2020-02-20] MEDS: SENNA/DOCUSATE TABLET PO SCH (08:31)
[2020-02-20] MEDS: LEVOTHYROXINE 25 MCG TABLET PO SCH (08:32)
[2020-02-20] MEDS: SODIUM CHLORIDE FLUSH 10ML SYR IVF SCH ×2 (08:32→21:00)
[2020-02-20] MEDS: INSULIN GLARGINE 100 UNITS/ML, PEN SQ-INSULIN SCH ×2 (08:37→21:07)
[2020-02-20] MEDS: BUDESONIDE 0.5 MG/2 ML INHA NPPB SCH ×2 (13:55→18:43)
[2020-02-20] MEDS ORDERED: ALBUMIN HUMAN 25% 100 ML IV ONE ×2 (16:00)
[2020-02-20] MEDS ORDERED: GABAPENTIN 300 MG CAPSULE ONE (20:57)
[2020-02-20] MEDS: MELATONIN 5 MG TABLET PO SCH (21:02)
[2020-02-20] MEDS: SIMVASTATIN 20 MG TABLET PO SCH (21:02)
[2020-02-20] MEDS: ACETAMINOPHEN 650 MG/20.3 ML UDC PO PRN (21:02)
[2020-02-20] MEDS: FENTANYL PF 100 MCG/2ML IVPush PRN (22:26)
[2020-02-21] MEDS: FENTANYL PF 100 MCG/2ML IVPush PRN (00:22)
[2020-02-21] MEDS: PROPOFOL 100 ML IV PRN ×6 (00:23→20:30)
[2020-02-21] MEDS: MEROPENEM 1 GM in SODIUM CHLORIDE 0.9% 100 ML IV SCH ×3 (00:23→16:29)
[2020-02-21] MEDS: FENTANYL PF 1,000 MCG in SODIUM CHLORIDE 0.9% 80 ML IV PRN ×3 (00:26→14:44)
[2020-02-21] MEDS: NOREPINEPHRINE 8 MG in SODIUM CHLORIDE 0.9% 242 ML IV PRN (00:40)
[2020-02-21] MEDS: ALBUTEROL/IPRATROPIUM 2.5MG/0.5MG, 3 ML NPPB SCH ×4 (01:00→17:58)
[2020-02-21] MEDS: INSULIN LISPRO 100 UNITS/ML, PEN SQ-INSULIN SCH ×4 (02:32→20:27)
[2020-02-21 04:00] VITALS: BP 117/52
[2020-02-21] MEDS: METOCLOPRAMIDE 5 MG/ML, 2ML IVPush SCH (05:36)
[2020-02-21 06:52] LABS: MEAN CORPUSCULAR HEMOGLOBIN 27.7 pg (27.0-34.8); MEAN CORPUSCULAR HGB CONC 31.6 g/dL (32.4-35.8); MEAN PLATELET VOLUME 9.1 fL (7.4-10.4); PLATELET COUNT 343 x10^3/uL (130-400); RED BLOOD COUNT 3.04 x10^6/uL (3.82-5.3); RED CELL DISTRIBUTION WIDTH 14.8 % (9.6-15.2)
[2020-02-21 07:02] LABS: ANION GAP 5 mmol/L (5-15); CALCIUM 9.2 mg/dL (8.5-10.1); CHLORIDE 105 mmol/L (98-107); CREATININE 0.79 mg/dL (0.55-1.02)
[2020-02-21] MEDS: BUDESONIDE 0.5 MG/2 ML INHA NPPB SCH ×2 (07:02→21:00)
[2020-02-21 07:03] LABS: BILIRUBIN,TOTAL 0.6 mg/dL (0.2-1.0)
[2020-02-21 07:27] LABS: MD YES
[2020-02-21 07:28] LABS: BAND#(MANUAL) 0.69 x10^3/uL; BANDS%(MANUAL) 5 % (0-7); EOS#(MANUAL) 0.28 x10^3/uL (0.0-0.4); EOS% (MANUAL) 2 % (1-7); LYMPH#(MANUAL) 1.52 x10^3/uL (1-3.4); LYMPHS% (MANUAL) 11 % (22-44); METAMYELOCYTES# (MANUAL) 0.14 x10^3/uL (0-0); METAMYELOCYTES% (MANUAL) 1 % (0-1); MONOS#(MANUAL) 0.97 x10^3/uL (0.3-2.7); MONOS% (MANUAL) 7 % (2-9); MYELOCYTES# (MANUAL) 0.14 x10^3/uL (0-0); MYELOCYTES% (MANUAL) 1 % (0-0); SEG#(MANUAL) 10.07 x10^3/uL (1.8-6.8); SEGS% (MANUAL) 73 % (42-75)
[2020-02-21 07:29] LABS: <PLATELET ESTIMATE> ADEQUATE; <PLT MORPHOLOGY> NORMAL PLT MORPH; ANISOCYTOSIS 1+; POLYCHROMASIA 1+
[2020-02-21] MEDS: INSULIN GLARGINE 100 UNITS/ML, PEN SQ-INSULIN SCH ×2 (09:14→20:28)
[2020-02-21] MEDS: VANCOMYCIN 2,000 MG in SODIUM CHLORIDE 0.9% 500 ML IV SCH (09:15)
[2020-02-21] MEDS: PANTOPRAZOLE 40 MG IV IVPush SCH ×2 (09:15→20:26)
[2020-02-21] MEDS: SODIUM CHLORIDE FLUSH 10ML SYR IVF SCH ×2 (09:15→20:26)
[2020-02-21] MEDS: SENNA/DOCUSATE TABLET PO SCH (09:16)
[2020-02-21] MEDS: LEVOTHYROXINE 25 MCG TABLET PO SCH (09:16)
[2020-02-21] MEDS: ENOXAPARIN 60 MG/0.6 ML SQ SCH (09:16)
[2020-02-21] MEDS: GABAPENTIN 250 MG/5 ML ORAL SOL PO SCH ×3 (09:16→20:26)
[2020-02-21] MEDS: ASPIRIN 81 MG TABLET EC PO SCH (09:16)
[2020-02-21] MEDS: MELATONIN 5 MG TABLET PO SCH (20:26)
[2020-02-21] MEDS: SIMVASTATIN 20 MG TABLET PO SCH (20:26)
[2020-02-22] MEDS: PROPOFOL 100 ML IV PRN ×6 (00:04→15:19)
[2020-02-22] MEDS: MEROPENEM 1 GM in SODIUM CHLORIDE 0.9% 100 ML IV SCH ×2 (00:28→09:19)
[2020-02-22] MEDS: ALBUTEROL/IPRATROPIUM 2.5MG/0.5MG, 3 ML NPPB SCH ×3 (00:49→13:14)
[2020-02-22] MEDS: FENTANYL PF 1,000 MCG in SODIUM CHLORIDE 0.9% 80 ML IV PRN ×2 (01:12→12:10)
[2020-02-22] MEDS: INSULIN LISPRO 100 UNITS/ML, PEN SQ-INSULIN SCH ×3 (03:38→15:11)
[2020-02-22 04:15] VITALS: BP 125/48
[2020-02-22 04:39] LABS: ANION GAP 5 mmol/L (5-15); CALCIUM 9.4 mg/dL (8.5-10.1); CHLORIDE 108 mmol/L (98-107)
[2020-02-22 04:42] LABS: BILIRUBIN,TOTAL 0.7 mg/dL (0.2-1.0); CREATININE 0.58 mg/dL (0.55-1.02); TRIGLYCERIDES 157 mg/dL (50-200)
[2020-02-22 04:44] LABS: BASOPHILS % (AUTO) 1 % (0-1); EOSINOPHILS % (AUTO) 2 % (1-7); LYMPHOCYTES % (AUTO) 6 % (22-44); MEAN CORPUSCULAR HEMOGLOBIN 27.2 pg (27.0-34.8); MEAN CORPUSCULAR HGB CONC 30.9 g/dL (32.4-35.8); MEAN PLATELET VOLUME 8.8 fL (7.4-10.4); MONOCYTES % (AUTO) 9 % (2-9); NEUTROPHILS % (AUTO) 82 % (42-75); PLATELET COUNT 436 x10^3/uL (130-400); RED BLOOD COUNT 3.16 x10^6/uL (3.82-5.3); RED CELL DISTRIBUTION WIDTH 14.6 % (9.6-15.2)
[2020-02-22 05:47] LABS: MD SCAN
[2020-02-22] MEDS: BUDESONIDE 0.5 MG/2 ML INHA NPPB SCH (07:13)
[2020-02-22] MEDS: INSULIN GLARGINE 100 UNITS/ML, PEN SQ-INSULIN SCH (08:21)
[2020-02-22] MEDS: ASPIRIN 81 MG TABLET EC PO SCH (08:24)
[2020-02-22] MEDS: SENNA/DOCUSATE TABLET PO SCH (08:24)
[2020-02-22] MEDS: PANTOPRAZOLE 40 MG IV IVPush SCH (08:24)
[2020-02-22] MEDS: LEVOTHYROXINE 25 MCG TABLET PO SCH (08:24)
[2020-02-22] MEDS: VANCOMYCIN 2,000 MG in SODIUM CHLORIDE 0.9% 500 ML IV SCH (08:28)
[2020-02-22] MEDS: ENOXAPARIN 60 MG/0.6 ML SQ SCH (08:41)
[2020-02-22] MEDS: SODIUM CHLORIDE FLUSH 10ML SYR IVF SCH (08:41)
[2020-02-22] MEDS: GABAPENTIN 250 MG/5 ML ORAL SOL PO SCH ×2 (09:12→15:11)
--- NOTE | 2020-02-22 14:31 | NUR ---
TF per RD recs: - Vital HP @50mL/hr (on propofol >25mcg/kg/min); - Vital HP @60mL/hr (on propofol <25mcg/kg/min); - Vital AF 1.2 @65mL/hr (OFF propofol) Addendum: 02/22/20 at [address] Amended: Links added.
[2020-02-22] MEDS ORDERED: MORPHINE SULFATE 4 MG/ML, 1ML ONE (15:20)
[2020-02-22] MEDS: NOREPINEPHRINE 8 MG in SODIUM CHLORIDE 0.9% 242 ML IV PRN (15:21)
[2020-02-22] MEDS ORDERED: LORazepam 2 MG/ML, 1ML ONE (15:21)
[2020-02-22] MEDS ORDERED: ONDANSETRON 2MG/ML, 2ML IVPush PRN (15:30)
[2020-02-22] MEDS ORDERED: LORazepam 2 MG/ML, 1ML IV ONE (15:30)
[2020-02-22] MEDS ORDERED: SCOPOLAMINE 1MG PATCH TD PRN (15:30)
[2020-02-22] MEDS ORDERED: MORPHINE SULFATE 4 MG/ML, 1ML IV ONE (15:30)
[2020-02-22] MEDS ORDERED: LORazepam 2 MG/ML, 1ML IVPush PRN (15:30)
[2020-02-22] MEDS ORDERED: MORPHINE SULFATE 4 MG/ML, 1ML IVPush PRN (15:30)
== END 2020-02-22 17:27 | disposition expired | DRG 720 ==
LOC: ED 11:32 → OBSVTOIN 13:51 → EDIP 13:51 → INTOOBSV 13:51 → SUATTDRO 14:15 → 3N 17:15 → OBSVTOIN 02-09 14:00 → CCU 02-11 03:42
PROVIDERS: ADMIT Hospitalist; ATTEND Internal Medicine
PROC: 5A09357 Assistance with Respiratory Ventilation, Less than 24 Consecutive Hours, Continuous Positive Airway Pressure (ICD-10-PCS; 2020-02-12)
PROC: XW033E5 Introduction of Remdesivir Anti-infective into Peripheral Vein, Percutaneous Approach, New Technology Group 5 (ICD-10-PCS; 2020-02-12)
PROC: 0BH17EZ Insertion of Endotracheal Airway into Trachea, Via Natural or Artificial Opening (ICD-10-PCS; principal; 2020-02-13)
PROC: 5A1955Z Respiratory Ventilation, Greater than 96 Consecutive Hours (ICD-10-PCS; 2020-02-13)
PROC: 02HV33Z Insertion of Infusion Device into Superior Vena Cava, Percutaneous Approach (ICD-10-PCS; 2020-02-13)
PROC: B548ZZA Ultrasonography of Superior Vena Cava, Guidance (ICD-10-PCS; 2020-02-13)
DX: A41.89 Other specified sepsis (principal); U07.1 COVID-19; J96.21 Acute and chronic respiratory failure with hypoxia; J96.22 Acute and chronic respiratory failure with hypercapnia; E66.01 Morbid (severe) obesity due to excess calories; J12.89 Other viral pneumonia; D64.9 Anemia, unspecified; E03.9 Hypothyroidism, unspecified; E11.65 Type 2 diabetes mellitus with hyperglycemia; Z68.43 Body mass index [BMI] 50.0-59.9, adult; G47.33 Obstructive sleep apnea (adult) (pediatric); E11.9 Type 2 diabetes mellitus without complications; I11.0 Hypertensive heart disease with heart failure; I27.81 Cor pulmonale (chronic); I27.29 Other secondary pulmonary hypertension; I50.9 Heart failure, unspecified; J15.212 Pneumonia due to Methicillin resistant Staphylococcus aureus; J44.0 Chronic obstructive pulmonary disease with (acute) lower respiratory infection; L03.115 Cellulitis of right lower limb; L03.116 Cellulitis of left lower limb; N17.0 Acute kidney failure with tubular necrosis; Z51.5 Encounter for palliative care; Z82.3 Family history of stroke; Z82.49 Family history of ischemic heart disease and other diseases of the circulatory system; Z87.891 Personal history of nicotine dependence; Z91.19 Patient's noncompliance with other medical treatment and regimen; Z99.81 Dependence on supplemental oxygen; Z88.5 Allergy status to narcotic agent; Z88.8 Allergy status to other drugs, medicaments and biological substances; Z99.11 Dependence on respirator [ventilator] status
CPT/HCPCS: 36415; 36573; 36600; 71045; 74018; 80048; 80053; 82247; 82728; 82803; 82962; 83036; 83605; 83615; 83735; 83880; 84100; 84145; 84439; 84443; 84450; 84460; 84478; 85025; 85379; 85610; 86140; 87040; 87070; 87081; 87205; 87400; 87635; 93005; 94002; 94003; 94640; 94660; 96365; 99285; G0378; J0456; J0696; J1100; J1650; J1940; J2185; J2405; J2704; J2997; J3010; J3370; J7060; J7626; P9047; C1751; C9113; J0360; J1815; J2060; J2270; J2765; J3475; J7030; J7040; J7050